=== PATIENT | male | born 1965 | race Caucasian/White ===

== ENCOUNTER 2020-07-06 08:18 | Observation (INO) | payer OTHER, SELFPAY ==
[2020-07-06] VITALS (13 sets, daily range): BP systolic 123–163; BP diastolic 68–103; PULSE 51–84; RESP 16–23; TEMP 36.1–36.9; O2SAT 97–100; BMI 28.8; BMI 28.9
--- NOTE | 2020-07-06 08:32 | EKG12_ITS ---
Test Reason : REPEAT Blood Pressure : / mmHG Vent. Rate : 060 BPM Atrial Rate : 060 BPM P-R Int : 148 ms QRS Dur : 104 ms QT Int : 406 ms P-R-T Axes : 064 -02 039 degrees QTc Int : 406 ms Normal sinus rhythm Normal ECG Confirmed by CYNTHIA FRANKS, PRANAY ([id number]), medical editor BESSIE GIRARD ([id number]) on 07/09/2020 11:20:49 AM Referred By: GEORGE Confirmed By:PRANAY MARIE MD
--- NOTE | 2020-07-06 08:33 | ED.DCSUM_ITS ---
- ER Visit Summary Date of Service: 07/06/20 Chief Complaint: Chest pain History of Present Illness: The patient is a 54 M presenting with chest pain. Patient states this started . He initially had persistent pain in his left chest that radiated to his left side of his back. Initially thought he had a rib out of place. He has had lightheadedness. He denies nausea or vomiting. Denies shortness of breath. Pain is now intermittent. He states he became diaphoretic today. He has a family history of early heart disease. No other CAD risk factors. He denies PE/DVT risk factors. Physical Examination: Vitals are stable. Blood pressure 163/103. Patient is afebrile. Alert no acute distress. HEENT exam is unremarkable. Neck is supple. Lungs are clear and equal bilaterally. Heart is regular rate and rhythm. Abdomen is soft nontender nondistended. Extremities are unremarkable. Skin is warm and dry. No focal neurologic deficit. Remainder of exam is unremarkable. Emergency Department Course and Treatment: Patient was given aspirin. EKG is sinus rhythm rate of 66. Repeat EKG is unchanged. Chest xray shows small left pleural effusion with left basilar atelectasis/infiltrate. CBC, chemistries unremarkable. Troponin is negative. D-dimer 1.10. Due to elevated d-dimer, CTA chest was obtained and shows small left pleural effusion with left basilar infiltrate. Minimal increased markings at the right lung base. Patient was given Levaquin IV. Discussed with hospitalist. Patient will be admitted. COVID test is negative. Disposition: Observation Impression: Chest pain, pneumonia This note was generated with [employer] dictation software. It may contain incorrect words, spelling, and punctuation that were not noted in review of the chart yuni or to signing ED Disposition - Plan for ED Patient:
[2020-07-06] MEDS: Aspirin 81 MG TAB.CHEW 324 MG PO (08:39)
--- NOTE | 2020-07-06 08:42 | EKG12_ITS ---
Test Reason : CP Blood Pressure : / mmHG Vent. Rate : 066 BPM Atrial Rate : 066 BPM P-R Int : 150 ms QRS Dur : 100 ms QT Int : 392 ms P-R-T Axes : 070 -04 040 degrees QTc Int : 410 ms Normal sinus rhythm Normal ECG Confirmed by CYNTHIA FRANKS, PRANAY ([id number]), movie editor BESSIE GIRARD ([id number]) on 07/09/2020 11:20:34 AM Referred By: GEORGE Confirmed By:PRANAY MARIE MD
--- NOTE | 2020-07-06 08:43 | RAD_ITS ---
STUDY: X-RAY CHEST REASON FOR EXAM: Male, 54 years old. INTERMITTENT CHEST PAIN SINCE MONDAY. 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 COMPARISON: None. FINDINGS: EKG electrodes are seen. Small left pleural effusion with left basilar atelectasis/infiltrate. Normal size heart. Normal mediastinum and rafael. Normal visualized pulmonary arteries. Normal visualized aortic arch and descending thoracic aorta. There are degenerative changes of the visualized thoracic spine. Normal visualized ribs, clavicles, and shoulders. There is no demonstrated abnormality of the visualized soft tissue structures of the upper abdomen. RAD/Chest 1 View (Portable) IMPRESSION: Small left pleural effusion with left basilar atelectasis/infiltrate. Electronically Signed: Suraj Real, at 9:01 EDT , Service support ,
[2020-07-06 08:51] LABS: Absolute Lymphocyte Count 1.56 X10^3/uL (0.83-4.51); Basophil# 0.03 X10^3/uL; Basophil% 0.4 % (0-1); Eosinophil# 0.29 X10^3/uL; Eosinophils% 3.8 % (0-5); Hematocrit 50.3 % (40-54); Hemoglobin 16.7 g/dL (13.0-16.5); Lymphocyte # 1.56 X10^3/ul (4.0); Lymphocyte % 20.6 % (19-41); Mean Corp Hgb Conc 33.2 g/dL (32-36); Mean Corpuscular Volume 90.3 fL (80-94); Mean Platelet Vol. 10.8 fl (6.2-12.0); Monocyte# 0.71 X10^3/uL; Monocyte% 9.4 % (0-10); NRBC Flagged by Analyzer 0 % (0-5); Neutrophil # 4.95 X10^3/uL (2.7-7.7); Neutrophil % 65.5 % (47-70); Platelet Count 200 K/mm3 (150-450); RBC Distribution Width CV 12.3 % (11.6-14.6); RBC Distribution Width SD 40.8 fl (35.1-43.9); Red Blood Count 5.57 M/mm3 (4.6-6.2); White Blood Count 7.6 K/mm3 (4.4-11.0)
[2020-07-06 09:10] LABS: Anion Gap 2 (5-15); BUN 12 mg/dL (7-18); BUN/Creat Ratio 12.3 RATIO (10-20); Calcium,Total 9.2 mg/dL (8.5-10.1); Chloride 101 mmol/L (98-107); Creatinine, Serum 0.98 mg/dL (0.70-1.30); EST Glomerular Filtration Rate 85 mL/min (>60); Est Glom Filt Rate - Afr Amer 103 mL/min (>60); Estimated Creatinine Clearance 102.52 ml/min; Glucose 96 mg/dL (74-106); Potassium 4.2 mmol/L (3.5-5.1); Sodium Level 138 mmol/L (136-145)
--- NOTE | 2020-07-06 09:13 | CT_ITS ---
STUDY: CTA CHEST REASON FOR EXAM: Male, 54 years old. Elevated D-dimer, chest pain x 4 days, diaphoretic today. RADIATION DOSAGE (If Supplied By Facility): CTDIvol = ( 13.22 ) mGy, DLP = ( 496.15 ) mGycm TECHNIQUE: The examination was performed with the intravenous administration of IV 100mL Isovue-370. Post-processing of the angiographic images was performed, with multiplanar reformation and 3D reconstruction. Individualized dose optimization techniques were used for this CT. COMPARISON: None. FINDINGS: Small benign-appearing bilateral axillary lymph nodes. Normal enhancement of the main pulmonary artery and right and left pulmonary arteries. Normal enhancement of the bilateral peripheral pulmonary arteries. There is no demonstrated pulmonary embolism. Normal thoracic aorta and visualized great vessels. There is no demonstrated aortic dissection. Normal heart and pericardium. Normal mediastinum. Normal hilar regions. Normal visualized trachea and bronchi. The lungs are well expanded. Small left pleural effusion with left basilar infiltrate. Minimal increased markings at the right lung base. Normal chest wall structures. There are degenerative changes of thoracic spine. Normal visualized upper abdomen. CT/CTA Chest W/WO Contrast IMPRESSION: Small left pleural effusion with left basilar infiltrate. Minimal increased markings at the right lung base. Electronically Signed: Suraj Real, at 9:47 EDT , Service support ,
[2020-07-06] MEDS: levoFLOXacin IV 750 MG/150 ML BAG 100 MG IV (10:55)
--- NOTE | 2020-07-06 12:09 | HP.PCM_ITS ---
Problem List (1) Left pleuritic chest pain Status: Acute (2) Community acquired pneumonia Status: Acute History of Present Illness Date of Admission: 07/06/20 Chief Complaint: Chest pain. The patient is a 54 year old M with no significant past medical history presented to the emergency room because of chest pain. Her symptoms started this past Monday which is 3 days ago with chest pain, left-sided, underneath his left breast, sharp pain, constant, 3-4 out of 10 in severity and sometimes goes up to 10 out of 10 in severity, radiates to the back underneath the left shoulder blade, he has been avoiding taking a deep breath with it and no other associated symptoms. Denied associated shortness of breath, radiation to the neck or left arm. Today morning, he had an episode of sharp pain after he took a deep breath and he became diaphoretic. He denied dizziness or lightheadedness, denied palpitation, syncope or presyncope. He denied fever or chills. He denied cough or sputum production. He denied sick contacts or recent travel. In the emergency department, his blood pressure was slight elevated, other vital signs were stable. Routine blood work was unremarkable. Chest x-ray revealed questionable left basilar infiltrate versus atelectasis. D-dimer was elevated for which CTA chest done and showed no PE or dissection, revealed left basilar infiltrate with left small pleural effusion. COVID-19 PCR is negative. He is being admitted for left basilar community-acquired pneumonia. Past Medical History Past Medical History (Chronic Problems): Chronic Problems Alcohol abuse (Chronic) Allergies No Known Allergies Allergy (Verified 07/06/20 08:18) Home Medications: Ambulatory Orders Medication Instructions Recorded NK 07/06/20 Surgical History: - - Back surgery. Psychiatric History: No pertinent psych hx Lives: Spouse/ Significant Other Smoking Status: Never smoker Alcohol: Heavy Drugs: None - *Family History Maternal History Items: Diabetes, Heart Disease Paternal History Items: No pertinent history Review of Systems Constitutional: Denies: Anorexia, Chills, Fever, Weakness Eyes: Denies: Blurred vision, Double vision, Drainage, Redness HEENT: Denies: Difficulty Hearing, Dysphasia, Ear Pain, Eye Pain, Nasal Congestion, Sore Throat Cardiovascular: Reports: Chest Pain. Denies: Chest Pressure, Chest Tightness, Edema, Heaviness, Light Headedness, Palpitations, Paroxysmal Noc. Dyspnea, Syncope Respiratory: Reports: Pleuritic Pain. Denies: Cough, Hemoptysis, Shortness of Breath, Sputum production, Wheezing Gastrointestinal: Denies: Abdominal Pain, Constipation, Diarrhea, Hematochezia, Nausea, Vomiting Genitourinary: Denies: Dysuria, Frequency, Hematuria Musculoskeletal: Denies: Arm Pain, Back Pain, Foot Pain Skin: Denies: Dryness, Rash Neurological: Denies: Balance problems, Blurred vision, Double vision, Change in Speech, Slurred speech, Confusion, Headaches, Numbness Psychiatric: Denies: Anxiety, Depression Endocrine: Denies: Change in Body Habitus, Polydipsia, Polyuria VTE Information - Inpt Only VTE Present on Admission: No VTE Mechan Device Prophylaxis: None VTE Pharm Prophylaxis ordered?: Yes Patient Problems: Active and Suspected Problems Left pleuritic chest pain (Acute) Community acquired pneumonia (Acute) - Physical Exam Vitals/I&O's: Vital Signs Temp Pulse Resp BP Pulse Ox 96.9 F L 60 19 H 139/96 H 99 07/06/20 08:19 07/06/20 10:58 07/06/20 10:58 07/06/20 10:58 07/06/20 10:58 Oxygen Delivery Method Room Air Weight: 225 lb Body Mass Index (BMI) 28.8 General: Alert, Oriented x3, Cooperative, No apparent distress HEENT: Atraumatic, PERRLA, EOMI, Normocephalic Oral: Moist Mucosa, No Gingival or Mucosal Lesions/ Ulcerations Neck: Supple, No JVD, Negative Carotid Bruits, Trachea Midline, Thyroid Normal Size and Texture Lungs: Clear to auscultation, No rhonchi, No wheeze, No rales, Diminished, - - Decreased breath sounds at the left base, otherwise clear. Cardiovascular: Regular rate, Regular Rhythm, Normal S1, Normal S2, No murmurs, PMI Normal Abdomen: Bowel Sounds Present, Soft, Non Tender, Non-Distended, No Hepato- splenomegaly Extremities: No clubbing, No cyanosis, No edema Skin: No rashes, No breakdown Lymphatic: No Cervical, Supraclavicular, or Inguinal Adenopathy Neurological: Cranial nerves II-XII grossly intact, Motor Exam 5/5 strength throughout Psych/Mental Status: Normal Affect, Appropriate, Alert and oriented to time, place, person, mood and affect Laboratory Results 07/06/20 08:45: WBC 7.6, RBC 5.57, Hgb 16.7 H, Hct 50.3, MCV 90.3, MCH 30.0, MCHC 33.2, RDW Std Deviation 40.8, RDW Coeff of Vijay 12.3, Plt Count 200, MPV 10.8, Immature Gran % (Auto) 0.300, Neut % (Auto) 65.5, Lymph % (Auto) 20.6, [place] % (Auto) 9.4, Eos % (Auto) 3.8, Baso % (Auto) 0.4, Absolute Neuts (auto) 5.0, Absolute Lymphs (auto) 1.56, Nucleated RBC % 0 07/06/20 08:45: D-Dimer Quant (PE/DVT) 1.10 H* 07/06/20 08:45: Sodium 138, Potassium 4.2, Chloride 101, Carbon Dioxide 35.0 H, Anion Gap 2 L, BUN 12, Creatinine 0.98, Estim Creat Clear Calc 102.52, Est GFR (MDRD) Af Amer 103, Est GFR (MDRD) Non-Af 85, BUN/Creatinine Ratio 12.3, Glucose 96, Calcium 9.2, Troponin I < 0.015 07/06/20 10:30: COVID-19 (JIMBO) Pending Clinical Impression(s) from Imaging Studies Chest X-Ray 07/06/20 08:43 IMPRESSION: Small left pleural effusion with left basilar atelectasis/infiltrate. Electronically Signed: Suraj Real, at 9:01 EDT , Service support , Chest CTA 07/06/20 09:13 IMPRESSION: Small left pleural effusion with left basilar infiltrate. Minimal increased markings at the right lung base. Electronically Signed: Suraj Real, at 9:47 EDT , Service support , Assessment/Plan All Active Problems Left pleuritic chest pain (Acute) Community acquired pneumonia (Acute) This is a 54 years old male patient presented to the emergency room because of left-sided pleuritic chest pain and he was found to have left basilar infiltrate with small left pleural effusion consistent with community-acquired pneumonia and he is being admitted for treatment. #1 acute left basilar community-acquired pneumonia: Without evidence of sepsis or severe sepsis. Patient denied cough or sputum production, denied fever or chills. He has no leukocytosis, pulse ox is maintained on room air. COVID-19 PCR is negative. Plan: Admit to [facility] floor, IV fluids, ibuprofen scheduled every 8 hours, Tylenol PRN, Zofran PRN, start IV Levaquin, pneumococcal and Legionella antigen, albuterol PRN, incentive spirometer, repeat CBC and BMP tomorrow morning. #2 left chest pain/elevated d-dimer: This chest pain seemed to be pleuritic, has been going on for 3 days. EKG revealed normal sinus rhythm, no acute segment changes. Troponin is negative. Patient denied family history of premature CAD. He is not a smoker. CTA chest showed no PE or dissection, revealed small left pleural effusion and left basilar infiltrate. Plan: Cardiac monitoring, serial cardiac enzymes, repeat EKG tomorrow morning. At this time, I do not think that we need to do any further cardiac work-up as this patient is matching the site of the left basal infiltrate and it is likely pleuritic pain due to pneumonia. #3 alcohol abuse: Without evidence of acute withdrawal. Patient drinks 3 to 4 days a week out of 7 days. Plan: Folic acid, thiamine, multivitamins. #4 DVT prophylaxis: Subcu Lovenox. This note was generated with [employer] dictation software. It may contain incorrect words, spelling, and punctuation that were not noted in checking the note before signing. Inpatient E&M: 71591 Init Hosp L2
[2020-07-06 14:15] LABS: Cholesterol 154 mg/dL (200); High Density Lipoprotein 52 mg/dL; Triglycerides 65 mg/dL; Very Low Density Lipoprotein 13 mg/dL (5-40)
[2020-07-06] MEDS: Ibuprofen 600 MG Tablet PO ×2 (14:19→21:04)
[2020-07-06] MEDS: 0.9% Normal Saline 1,000 ML 100 ML IV (14:19)
[2020-07-06] MEDS: guaiFENesin 1,200 MG Tablet 1200 MG PO (21:05)
[2020-07-07 03:06] VITALS: PULSE 47
[2020-07-07 04:00] VITALS: BP 108/77; PULSE 59; RESP 17; TEMP 36.6; O2SAT 97
[2020-07-07] MEDS: Ibuprofen 600 MG Tablet PO (04:57)
--- NOTE | 2020-07-07 05:55 | EKG12_ITS ---
Test Reason : AM EKG Blood Pressure : / mmHG Vent. Rate : 047 BPM Atrial Rate : 047 BPM P-R Int : 156 ms QRS Dur : 102 ms QT Int : 466 ms P-R-T Axes : 067 019 037 degrees QTc Int : 412 ms Sinus bradycardia Otherwise normal ECG When compared with ECG of 06-JUL-2020 08:58, MANUAL COMPARISON REQUIRED, DATA IS UNCONFIRMED Confirmed by JULIAN FRANKS, GEOFFREY ([id number]), editor in chief newspaper BESSIE GIRARD ([id number]) on 07/09/2020 11:01:42 AM Referred By: ALVARADO Confirmed By:GEOFFREY JORDAN MD
[2020-07-07 06:30] LABS: Absolute Neutrophil Count 3.4 X10^3/uL (2.0-7.7); Basophil# 0.04 X10^3/uL; Basophil% 0.7 % (0-1); Eosinophil# 0.38 X10^3/uL; Eosinophils% 6.3 % (0-5); Hematocrit 47.1 % (40-54); Hemoglobin 15.5 g/dL (13.0-16.5); Lymphocyte % 26.6 % (19-41); Mean Corp Hgb Conc 32.9 g/dL (32-36); Mean Corpuscular Hgb 29.6 pg (27.0-32.0); Mean Corpuscular Volume 90.1 fL (80-94); Monocyte# 0.55 X10^3/uL; Monocyte% 9.1 % (0-10); NRBC Flagged by Analyzer 0 % (0-5); Neutrophil # 3.44 X10^3/uL (2.7-7.7); Neutrophil % 57.1 % (47-70); Platelet Count 195 K/mm3 (150-450); RBC Distribution Width SD 39.5 fl (35.1-43.9); Red Blood Count 5.23 M/mm3 (4.6-6.2)
[2020-07-07 06:52] LABS: ALB/GLOB Ratio 0.8 RATIO (0.9-2.4); AST(SGOT) 13 U/L (15-37); Alanine Aminotransfer ALT/SGPT 22 U/L (16-61); Alkaline Phosphatase 76 U/L (45-117); Anion Gap 3 (5-15); BUN 15 mg/dL (7-18); BUN/Creat Ratio 16.4 RATIO (10-20); Calcium,Total 8.5 mg/dL (8.5-10.1); Chloride 108 mmol/L (98-107); Creatinine, Serum 0.91 mg/dL (0.70-1.30); EST Glomerular Filtration Rate 92 mL/min (>60); Est Glom Filt Rate - Afr Amer 112 mL/min (>60); Globulin 3.6 g/dL (2.2-4.2); Glucose 89 mg/dL (74-106); Potassium 4.4 mmol/L (3.5-5.1); Protein, Total 6.6 g/dL (6.4-8.2); Sodium Level 140 mmol/L (136-145)
[2020-07-07 07:14] VITALS: PULSE 61
--- NOTE | 2020-07-07 08:08 | DCINST_ITS ---
- Discharge Diagnoses Current Active Problems: Current Active and Chronic Problems Alcohol abuse (Chronic) Left pleuritic chest pain (Acute) Community acquired pneumonia (Acute) You will use the following diet at home:: Regular Your food should be the consistency of: Regular Discharge Activity: Return to Normal Activity Weight Bearing Status: Full weight bearing Call your doctor if you observe: Fever of 101 or Higher, Shortness of breath, Dizziness, Fainting spells, Chest pain, Increased palpitations (irregular heartbeat), Uncontrolled pain Instructions: Pneumonia, Pleurisy Additional Instructions: You can use [id number] ibuprofen 400 mg every 8 hours as needed for pain. Take it with food. Allergies/Adverse Reactions: Allergies No Known Allergies Allergy (Verified 07/06/20 08:18) Medications to take at Discharge levoFLOXacin tablet [Levaquin tablet] 750 mg PO DAILY #6 tab 07/07/20 The following prescriptions were given: levoFLOXacin tablet [Levaquin tablet] 750 mg PO DAILY #6 tab Transmission Status: Pending to [id number] Primary Care Physician: Abel Quinonez MD [Primary Care Provider] - Please follow up with your Primary Care Physician in: 1 week. Test Results: Test results from this visit will be discussed in further detail at your follow- up appointment, if applicable.
--- NOTE | 2020-07-07 09:19 | CASEMGMT ---
ROOPA SCHROEDER assessment: Face to Face with patient for initial transition planning/care coordination assessment. ROOPA SCHROEDER introduced self and role at [facility], pt voices understanding and consents to assessment at this time. Pt is sitting up in bed in no distress at this time. Pt is A/Ox4 at this time and answers all questions appropriately at this time. Care providers, pharmacy, and demographics verified at this time. Presentation: Intermittent CP that radiates to back since , also w/ some diaphoresis Admitting dx: Left basilar CAP, left pleuritic CP PCP: Devi Specialists: Pt states no current specialists. Preferred [facility]acy: [facility] Insurance: MMO Prescription Benefit: MMO Living Will/HPOA: Pt states does not have LW/HPOA and declines AD info at this time. LNOK: Lyric Casillas, sig other Living Arrangements: Pt states lives with sig other in home and states no concerns at home at this time. Pt states is independent with ADL's. Transportation: Pt states drives self and states no transportation concerns at this time. DME/HHC: Pt states no current DME or need for any at this time. Pt states no hx of HHC or SNF in the past. Pt states no concerns with going home at time of discharge. 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 Pt states does not smoke cigarettes but does occasionally drink ETOH. Pt voices no further concerns/needs at this time. CM to follow for any further discharge planning/needs. Advised pt to ask for CM if any further questions/concerns/needs arise, voices understanding. Pt Goal: Home Plan[place] ROOPA SCHROEDER
[2020-07-07 09:32] VITALS: BP 144/86; PULSE 56; RESP 16; TEMP 36.6; O2SAT 96
[2020-07-07] MEDS: Multivitamins,Therapeutic Tablet 1 TABLET PO (09:41)
[2020-07-07] MEDS: Aspirin 81 MG TAB.CHEW PO (09:41)
[2020-07-07] MEDS: Folic Acid 1 MG Tablet PO (09:41)
[2020-07-07] MEDS: levoFLOXacin IV 750 MG/150 ML BAG 100 MG IV (09:42)
[2020-07-07] MEDS: guaiFENesin 1,200 MG Tablet 1200 MG PO (09:42)
[2020-07-07] MEDS: Thiamine Hydrochloride 100 MG Tablet PO (09:42)
[2020-07-07] MEDS: Pantoprazole Sodium 40 MG Tablet PO (09:42)
[2020-07-07] MEDS: 0.9% Saline Lock 10 ML Syringe IV (09:43)
--- NOTE | 2020-07-07 09:53 | PHA.DC.MC ---
Pharmacy Service has performed discharge medication reconciliation and counseling for this patient. The patient was counseled on the following discharge medications and changes in medications for homegoing were reviewed. 1. LEVOFLOXACIN The Reason for Use, instructions for use, and potential side effects were reviewed for all new medications. The patient's questions regarding all of their medications were answered. The patient was able to verbally demonstrate an understanding of their discharge medications. Home Medications levoFLOXacin tablet [Levaquin tablet] 750 mg PO DAILY #6 tab 07/07/20 The patient's discharge medication list was reviewed for discrepancies and discrepancies were resolved.
--- NOTE | 2020-07-07 11:05 | DS.PCM_ITS ---
Discharge Date and Diagnosis - Problem List Patient Problems: Active and Suspected Problems Left pleuritic chest pain (Acute) Community acquired pneumonia (Acute) Date of Admission: 07/06/20 Date of Discharge: 07/07/20 - Primary Discharge Diagnosis Acute Problems: Active Problems #1 left pleuritic chest pain (Acute) #2 left basilar community acquired pneumonia (Acute) - Secondary Discharge Diagnosis Chronic Problems: Chronic Problems Alcohol abuse (Chronic) Hospital Course and Treatment Imaging Results: Clinical Impression(s) from Imaging Studies Chest X-Ray 07/06/20 08:43 IMPRESSION: Small left pleural effusion with left basilar atelectasis/infiltrate. Electronically Signed: Suraj Addie, at 9:01 EDT , Service support , Chest CTA 07/06/20 09:13 IMPRESSION: Small left pleural effusion with left basilar infiltrate. Minimal increased markings at the right lung base. Electronically Signed: Suraj Real, at 9:47 EDT , Service support , Operations: None Procedures: EKG Summary of Care Provided: Patient seen and examined on the day of discharge and appeared to be stable to be discharged home. Left Duncan chest pain has been improving, much improved. Denied shortness of breath. Denied cough or sputum production. Denied fever chills. His vital signs are stable. He has been bradycardic but patient mentioned that his heart rate has been in the high 40s to 50s. He is asymptomatic. The patient is a 54 year old M presented to the emergency room because of chest pain. The pain started 3 days before admission, left-sided chest pain underneath his left breast, sharp pain, radiates to his back underneath the left shoulder blade, aggravated by taking a deep breath. His EKG revealed normal sinus rhythm without evidence of acute ischemic changes. His troponin was negative x3. COVID-19 PCR was done and it was negative. Chest x-ray showed l eft basilar haziness with obliteration of the left costophrenic angle with underlying possible infiltrate or atelectasis. He was found to have elevated d- dimer for which CTA chest done and showed no PE or dissection, revealed left lower lobe basilar infiltrate with small left pleural effusion. Patient is chest pain is attributed to pneumonia and pleurisy. He was treated with IV Levaquin, ibuprofen and Tylenol as well as IV fluids. Repeat EKG revealed sinus bradycardia, no acute segment changes. Troponin was negative x3. Pneumococcal and Legionella antigen were negative. There was no indication for further cardiac work-up. His routine blood work was unremarkable. Patient remained afebrile throughout admission. Patient discharged home in a stable condition, discharged on Levaquin 750 mg p.o. daily to complete total of 7 days of treatment, instructed to take [id number] ibuprofen PRN for pain, recommended follow-up with PCP in 1 week. Patient Problems: Active and Suspected Problems Left pleuritic chest pain (Acute) Community acquired pneumonia (Acute) - Physical Exam Vitals/I&O's: Vital Signs Temp Pulse Resp BP Pulse Ox 97.8 F 56 L 16 144/86 H 96 07/07/20 09:32 07/07/20 09:32 07/07/20 09:32 07/07/20 09:32 07/07/20 09:32 Oxygen Delivery Method Room Air Weight: 225 lb Body Mass Index (BMI) 28.8 Intake and Output for Last 24 Hours 07/05/20 07/06/20 07/07/20 23:59 23:59 23:59 Intake Total 470 / 470 1240 / 1240 Balance 470 / 470 1240 / 1240 General: Alert, Oriented x3, Cooperative, No apparent distress HEENT: Atraumatic, PERRLA, EOMI, Normocephalic Oral: Moist Mucosa, No Gingival or Mucosal Lesions/ Ulcerations Neck: Supple, No JVD, Negative Carotid Bruits, Trachea Midline, Thyroid Normal Size and Texture Lungs: Clear to auscultation, No rhonchi, No wheeze, No rales, Diminished, - - Diminished breath sounds on the left base, otherwise clear. Cardiovascular: Regular rate, Regular Rhythm, Normal S1, Normal S2, PMI Normal Abdomen: Bowel Sounds Present, Soft, Non Tender, Non-Distended Extremities: No clubbing, No cyanosis, No edema Skin: No rashes, No breakdown Lymphatic: No Cervical, Supraclavicular, or Inguinal Adenopathy Neurological: Cranial nerves II-XII grossly intact, Neuro grossly intact Psych/Mental Status: Normal Affect, Appropriate, Alert and oriented to time, place, person, mood and affect Microbiology Past 72 Hours 07/06/20 18:30 Urine, Clean Catch Streptococcus pneumoniae Antigen (M - Final 07/06/20 18:30 Urine, Clean Catch Legionella Antigen - Final Laboratory Results 07/06/20 08:45: Triglycerides 65, Cholesterol 154, LDL Cholesterol 89, VLDL Cholesterol 13, HDL Cholesterol 52 07/06/20 10:30: COVID-19 (JIMBO) Not Detected 07/06/20 14:26: Troponin I < 0.015 07/06/20 17:20: Troponin I < 0.015 07/07/20 06:12: WBC 6.0, RBC 5.23, Hgb 15.5, Hct 47.1, MCV 90.1, MCH 29.6, MCHC 32.9, RDW Std Deviation 39.5, RDW Coeff of Vijay 12.0, Plt Count 195, MPV 11.0, Immature Gran % (Auto) 0.200, Neut % (Auto) 57.1, Lymph % (Auto) 26.6, [place] % (Auto) 9.1, Eos % (Auto) 6.3 H, Baso % (Auto) 0.7, Absolute Neuts (auto) 3.4, Absolute Lymphs (auto) 1.60, Nucleated RBC % 0 07/07/20 06:12: Sodium 140, Potassium 4.4, Chloride 108 H, Carbon Dioxide 29.0, Anion Gap 3 L, BUN 15, Creatinine 0.91, Estim Creat Clear Calc 110.40, Est GFR (MDRD) Af Amer 112, Est GFR (MDRD) Non-Af 92, BUN/Creatinine Ratio 16.4, Glucose 89, Calcium 8.5, Total Bilirubin 0.60, AST 13 L, ALT 22, Alkaline Phosphatase 76, Total Protein 6.6, Albumin 3.0 L, Globulin 3.6, Albumin/Globulin Ratio 0.8 L Current Medications Acetaminophen (Tylenol) 650 mg PO Q6H PRN PRN PRN Reason: Pain Score 1-10/Temp > 100.7 F Albuterol Sulfate (Ventolin Aerosols) 2.5 mg INHALATION Q4H PRN PRN PRN Reason: Shortness of Breath/Wheezing Aspirin (Aspirin, Baby) 81 mg PO DAILY@0800 [facility] Last Admin: 07/07/20 09:41 Dose: 81 mg Documented by: Enoxaparin Sodium (Lovenox) 40 mg SC DAILY [facility] Last Admin: 07/07/20 09:42 Dose: Not Given Documented by: Folic Acid (Folic Acid) 1 mg PO DAILY@0800 [facility] Last Admin: 07/07/20 09:41 Dose: 1 mg Documented by: Guaifenesin (Mucinex) 1,200 mg PO BID [facility] Last Admin: 07/07/20 09:42 Dose: 1,200 mg Documented by: Levofloxacin (Levaquin Iv) 750 mg in 150 mls @ 100 mls/hr IV Q24 [facility] Stop: 07/14/20 10:01 Last Admin: 07/07/20 09:42 Dose: 100 mls/hr Documented by: Ibuprofen (Motrin) 600 mg PO Q8 [facility] Last Admin: 07/07/20 04:57 Dose: 600 mg Documented by: [facility] Admin: 07/07/20 09:41 Dose: 1 tablet Documented by: Ondansetron HCl (Zofran) 4 mg IV Q8H PRN PRN PRN Reason: NAUSEA/VOMITING Oxycodone HCl (Oxyir) 5 mg PO Q4H PRN PRN PRN Reason: Pain Score 4-10/10 Pantoprazole Sodium (Protonix) 40 mg PO DAILY [facility] Last Admin: 07/07/20 09:42 Dose: 40 mg Documented by: Senna/Docusate Sodium (Senokot-S, Emily-Colace) 2 tablet PO BID PRN PRN PRN Reason: Constipation Sodium Chloride () 10 - 40 ml IV UD PRN PRN Reason: SALINE FLUSH Last Admin: 07/07/20 09:43 Dose: 10 ml Documented by: Thiamine HCl ([facility]itamin B1) [facility] Last Admin: 07/07/20 09:42 Dose: 100 mg Documented by: Zolpidem Tartrate (Ambien (Generic)) 5 mg PO QHS PRN PRN PRN Reason: INSOMNIA Discharge Activity: Return to Normal Activity Weight Bearing Status: Full weight bearing Call your doctor if you observe: Fever of 101 or Higher, Shortness of breath, Di zziness, Fainting spells, Chest pain, Increased palpitations (irregular heartbeat), Uncontrolled pain Home Medications: Medications to take at Discharge levoFLOXacin tablet [Levaquin tablet] 750 mg PO DAILY #6 tab 07/07/20 Following Prescriptions Were Given to Patient: levoFLOXacin tablet [Levaquin tablet] 750 mg PO DAILY #6 tab Transmission Status: Received by [facility] Primary Care Physician: Abel Quinonez MD [Primary Care Provider] - Please follow up with your Primary Care Physician in: 1 week. Patient Instructions: Pleurisy, Pneumonia Disposition: Home Minutes spent on discharge:: 28 Patient Condition:: Stable Medical Necessity - Tobacco Use Smoking Status: Never smoker Meaningful Use Info Meaningful Use Diagnoses (Choose all that apply): None applicable OBSV E&M: 08823 Observation care discharge
[2020-07-07 11:35] VITALS: BP 142/88; PULSE 63; RESP 16; TEMP 36.4; O2SAT 97
== END 2020-07-07 08:09 | disposition home or self-care (01) ==
LOC: ED 10:30 → PCU 07-07 07:07
PROVIDERS: Admitting Provider Hospitalist; Emergency Provider Emergency Medicine; Visit Provider Hospitalist
DX: J18.9 Pneumonia, unspecified organism (principal); F10.10 Alcohol abuse, uncomplicated
CPT/HCPCS: 36415; 71045; 71275; 80048; 80053; 80061; 84484; 85025; 85379; 87449; 87635; 93005; 94799; 96361; 96365; 96366; 99218; 99285; J7030; J7050; Q9967; A4216; G0378; U0003

== ENCOUNTER → 2021-08-25 | Outpatient (CLI) | payer OTHER, SELFPAY | END | disposition home or self-care (01) | LOC: LABSPEC 08:20 | PROVIDERS: Referring Provider Physician Assistant; Visit Provider Physician Assistant | DX: Z11.52 Encounter for screening for COVID-19 (principal) | CPT/HCPCS: 87635; U0005; U0003 ==

== ENCOUNTER 2022-06-21 08:36 | Day surgery (SDC) | payer OTHER, SELFPAY ==
[2022-06-21] VITALS (7 sets, daily range): BP systolic 109–141; BP diastolic 77–89; PULSE 43–55; RESP 16; TEMP 36.1–36.9; O2SAT 97–100; BMI 29.2
--- NOTE | 2022-06-21 | IMM_PTH ---
PATIENT: SIRIA GLEZ LOC: EN U#:[id number] AGE/SX: 56/M ROOM: RE06/21/[address]: Dr. Tom Hernandez MD : 1965 BED: DIS: 06/21/2022 SPEC #: [id number] RECD: 06/22/22 06:26 STATUS: MAICOL GIOVANNI #: [id number] BHAVANA: 06/21/22 00:[address]: Tom Hernandez DEPT: IMMUNOHISTOCHEMISTRY RECD BY: Jae Esposito ENTERED: 06/22/22 06:27 SP TYPE: IMMUNO OTHR DR: Dr. Rowena Narayan MD Tissues: Colon, NOS Procedures: H Pylori (initial) PHYSICIAN & INSTITUTION [place] [address] SPECIMEN INFORMATION: Tissue Source: A. Antrum biopsy Clinical Info: GERD, screen for colon cancer Specimen Number: [id number] CPT code: 73109 METHODOLOGY: Deparaffinized sections of prefer/formalin-fixed tissue or PAP/DQ stained slides are incubated with monoclonal/polyclonal antibodies/oligonucleotide probes. Localization is made via biotin free immunoperoxidase method. Appropriate controls are performed and reacted as expected. Results on target cell population are indicated in the following table: RESULTS: ANTIBODY / CLONE RESULT Block A H Pylori (polyclonal) negative These tests were developed and their performance characteristics determined by [facility]. They may not have been cleared or approved by the U.S. Food and Drug Administration. The FDA has determined that such clearance or approval is not necessary. The above immunohistochemical/dualISH markers are ordered and reviewed by the Pathologist. INTERPRETATION: A. Gastric antrum, biopsy: Negative for Helicobacter pylori organisms. AM:khris 06/22/22
[2022-06-21] MEDS: Lactated Ringers 1,000 ML 15 ML IV (09:00)
--- NOTE | 2022-06-21 09:45 | EGD_PTH ---
PATIENT: SIRIA GLEZ LOC: EN U#:[id number] AGE/SX: 56/M ROOM: RE06/21/[address]: Dr. Tom Hernandez MD : 1965 BED: DIS: 06/21/2022 SPEC #: [id number] RECD: 06/21/22 11:29 STATUS: MAICOL GIOVANNI #: [id number] BHAVANA: 06/21/22 09:[address]: Tom Hernandez DEPT: SURGICAL PATHOLOGY RECD BY: Tuyet Kumar ENTERED: 06/21/22 11:45 SP TYPE: EGD BIOPSY OT DR: Dr. Rowena Narayan MD Tissues: A - Gastric mucous membrane B - Stomach, NOS C - Ascending colon Procedures: Surgery Specimen Level IV HEADER OPERATION: Colonoscopy, EGD with biopsy ([facility] PH probe PRE-OP DIAGNOSIS: GERD, screening for colon cancer TISSUE SUBMITTED: A. Antrum biopsy, B. GE junction, C. Ascending colon MICROSCOPIC DIAGNOSIS A. Gastric antrum, biopsy: Mild chronic inflammation. B. Gastro-esophageal junction, biopsy: Fragments of squamous mucosa with ulceration, granulation and acute inflammation. Negative for fungal organisms See Comment. C. Ascending colon. Biopsy: Hyperplastic polyp. AM:am 06/22/2022 COMMENT A. The results of immunohistochemistry for Helicobacter pylori will be reported separately ([id number]). B: GMS stain with matched control supports the above diagnosis. MICROSCOPIC DESCRIPTION Slides are reviewed. GROSS DESCRIPTION A. Received is one container labeled with the patient name and designated antrum. The specimen consists of one irregular fragment of light romero soft tissue that measures 0.5 x 0.4 x 0.1 cm. The specimen is totally submitted in one cassette. B. Received is one container labeled with the patient name and designated GE junction. The specimen consists of multiple irregular fragments of light romero soft tissue that in aggregate measure 1.0 x 0.3 x 0.1 cm. The specimen is totally submitted in one cassette. C. Received is one container labeled with the patient name and designated ascending colon. The specimen consists of one irregular fragment of light romero soft tissue that measures 0.7 x 0.2 x 0.1 cm. The specimen is totally submitted in one cassette. /SJ:khris 06/21/22 TC:3 CPT:75550y3,12600
--- NOTE | 2022-06-21 10:04 | HP.PCM_ITS ---
History and Physical Date of Admission: 06/21/22 Intake Vital Signs ? 06/02/2209:18 Height 6 ft 3 in Weight: 246 lb BMI 30.7 BP 147/88 H Blood Pressure LocationB Rt brachial Position Sitting Respiration 18 Intake Visit Reasons:?GERD/POSSIBLE EGD Chief Complaint: gerd/c-scope Motor Vehicles Inspector Required: No Is patient in pain?: No Allergies No Known Allergies Allergy (Verified 06/02/22 09:19) Medications omeprazole 40 mg capsule,delayed release 40 mg PO DAILY #60 caps 06/02/22 [Rx Confirmed 06/02/22] PFSH Medical History?(Updated 06/02/22 @ 09:[address] Tom Hernandez MD) Dysphagia GERD (gastroesophageal reflux disease) Surgical History?(Updated 06/02/22 @ 09:18 by Thuy Gordon) S/P laminectomy Social History?(Updated 06/02/22 @ 09:18 by Thuy Gordon) Smoking Status:? Never smoker alcohol intake:? current alcohol intake frequency: a few times a month HPI HPI HPI: SIRIA GLEZ, is a 56 M who presents to the office today for EGD and colonoscopy.? The patient says he has been having a lot of reflux and needs to sleep sitting up in his severely affecting his life.? Patient reports that it happens at night and it happens after eating and he is belching a lot that is not controlled.? He is also having some epigastric discomfort especially with coughing. the patient is never had a screening colonoscopy reports no blood in the stool or lower abdominal pain.? He has no family history of colon cancer. ROS General General: No weight change, appetite, fatigue, colon cancer, breast cancer or weakness HEENT HEENT: No difficulty swallowing, eye injury, eye surgery, swollen glands or hoarseness Endo Endocrine: No thyroid disease, diabetes mellitus, thyroid cancer, Hair loss, heat intolerance or cold intolerance Skin Skin: No rash or changing moles Breast Breast: No left breast lump, right breast lump, nipple discharge, breast pain, abnormal mammogram, abnormal US or breast enlargement Musc Musculoskeletal: No back problems, arthritis, rheumatoid arthritis, gout or joint pain Cardio Cardiovascular: No murmur, pacemaker, heart disease, atrial fibrillation, high blood pressure, heart attack, heart stent, palpitations, shortness of breat with exertion or chest pain Psych Psychiatric: No depression, anxiety or hearing voices Resp Respiratory: Yes shortness of breath, No sleep apnea, Yes cough, No COPD, No asthma, No emphysema and No wheezing Gastro Gastrointestinal: No abdominal pain, No nausea or vomiting, No diarrhea, No constipation, No blood in stool, Yes acid reflux, No hemorrhoids, No ulcers, No gallbladder problem and No black,tarry stools Rodney Hematologic: No blood thinners, No blood disorders, No bleeding, No anemia and No blood clots Neuro Neurologic: No system reviewed and no additional complaints, except as documented, No as per HPI, No abnormal gait, No abnormal hearing, No abnormal movements, No abnormal speech, No behavioral changes, No burning sensations, No confusion, No convulsions, No disequilibrium, No dizziness, No localized weakness, No frequent falls, No headache(s), No lack of coordination, No loss of vision, No memory loss, No numbness, No other visual disturbances, No radicular pain, No restless legs, No sensory deficit, No syncope, No tingling, No tremor(s), No weakness and No other Exam Const General: cooperative Orientation: alert and oriented x3 HENMT Head: normal to inspection Neck Neck: normal visual inspection and full ROM Chest Chest palpation & inspection: normal inspection of the chest Resp Effort & Inspection: normal respiratory effort Auscultation: clear to auscultation bilaterally Cardio Rate: regular rate Rhythm: regular rhythm GI Inspection: non-distended Palpation: soft and nontender Skin General: no rashes or lesions noted Neuro General: patient alert and patient oriented x3 Extrem General: full ROM Psych Appearance: grossly normal Mental Status: mental status grossly normal Assessment and Plan Assessment and Plan (1) GERD (gastroesophageal reflux disease): ?Status:?Acute (2) Screen for colon cancer: ?Status:?Acute ? ? ? Orders: Orders Colonoscopy Today ? ? EGD with 48 pH probe Today ? Medications: New omeprazole 40 mg? PO DAILY 60 caps 0RF ? ? Plan The patient is having a lot of reflux and is worried for hiatal hernia.? He is also never had a screening colonoscopy.? I recommend EGD with pH probe and screening colonoscopy.? I will also order him omeprazole to take to see if this helps in the meantime. I explained endoscopy in detail to the patient.? I explained the risks including but not limited to stroke or heart attack with anesthesia, perforation of the GI tract, bleeding, infection.? I explained that any of these could necessitate further emergency surgery.? The patient understands and all questions were answered sufficiently.? The patient wishes to proceed with procedure. Tom Hernandez MD Pager: [facility] [address] [place] [address], [address] [place] [address] Office: I have re-examined the patient. There are no clinical changes since date of exam.
--- NOTE | 2022-06-21 11:07 | OP.EGD_ITS ---
Patient Name: Jaden England Procedure Date: 06/21/2022 10:12 AM Date of : 1965 Age: 56 Procedure: Upper GI endoscopy Indications: Gastro-esophageal reflux disease Providers: Tom Hernandez MD Medicines: Monitored Anesthesia Care Patient Profile: This is a 56 year old male. Refer to note in patient chart for documentation of history and physical. Complications: No immediate complications. Procedure: Pre-Anesthesia Assessment: - Prior to the procedure, a History and Physical was performed, and patient medications and allergies were reviewed. The patient's tolerance of previous anesthesia was also reviewed. The risks and benefits of the procedure and the sedation options and risks were discussed with the patient. All questions were answered, and informed consent was obtained. Prior Anticoagulants: The patient has taken no previous anticoagulant or antiplatelet agents. After reviewing the risks and benefits, the patient was deemed in satisfactory condition to undergo the procedure. After obtaining informed consent, the endoscope was passed under direct vision. Throughout the procedure, the patient's blood pressure, pulse, and oxygen saturations were monitored continuously. The gastroscope was introduced through the mouth, and advanced to the third part of duodenum. The upper GI endoscopy was accomplished without difficulty. The patient tolerated the procedure well. Scope In: 10:30:49 AM Scope Out: 10:37:26 AM Total Procedure Duration Time 0 hours 6 minutes 37 seconds Findings: A small hiatal hernia was present. The examined duodenum was normal. The stomach was normal. Biopsies were taken with a cold forceps in the gastric antrum for Helicobacter pylori testing. The CENTENO capsule with delivery system was introduced through the mouth and advanced into the esophagus, such that the CENTENO pH capsule was positioned 35 cm from the incisors, which was 6 cm proximal to the GE junction. Suction was applied to the well of the CENTENO pH capsule to suck in the adjacent mucosa of the esophagus using the external vacuum pump set at a minimum vacuum pressure of 550 mmHg for 30 seconds. The CENTENO pH capsule was then deployed by depressing the plunger on top of the handle to advance the locking pin into the mucosa, thereby attaching the capsule to the esophagus. The plunger was then rotated a quarter turn clockwise to release the capsule from the delivery system. The delivery system was then withdrawn. Endoscopy was utilized for probe placement and diagnostic evaluation. The esophagus and gastroesophageal junction were examined with white light. There were esophageal mucosal changes suspicious for short-segment Boogie's esophagus. These changes involved the mucosa extending to the Z-line. One tongue of salmon-colored mucosa was present. The maximum longitudinal extent of these esophageal mucosal changes was 2 cm in length. Mucosa was biopsied with a cold forceps for histology in a targeted manner at the gastroesophageal junction. One specimen bottle was sent to pathology. Impression: - Small hiatal hernia. - Normal examined duodenum. - Normal stomach. - Biopsies were taken with a cold forceps for Helicobacter pylori testing. - The CENTENO pH capsule was positioned 35 cm from the incisors, which was 6 cm proximal to the GE junction. Recommendation: - Discharge patient to home. - Resume previous diet. - Continue present medications. - Await pathology results. Procedure Code(s): --- Professional --- 86265, Esophagogastroduodenoscopy, flexible, transoral; with biopsy, single or multiple 92093, Esophagus, gastroesophageal reflux test; with mucosal attached telemetry pH electrode placement, recording, analysis and interpretation Diagnosis Code(s): --- Professional --- K44.9, Diaphragmatic hernia without obstruction or gangrene K21.9, Gastro-esophageal reflux disease without esophagitis CPT copyright 2017 [employer]. All rights reserved. The codes documented in this report are preliminary and upon tie in machine operator review may be revised to meet current compliance requirements. Tom Hernandez MD 06/21/2022 11:06:43 AM This report has been signed electronically. Number of Addenda: 0 Note Initiated On: 06/21/2022 10:12 AM
--- NOTE | 2022-06-21 11:09 | OP.CCLET_ITS ---
06/21/2022 Rowena Narayan MD [address] [place] [address] Re : Upper GI endoscopy procedure for Jaden England Dear Dr. Narayan This procedure was performed on Tuesday, June 21, 2022. My impressions and recommendations are as follows: Impressions : - Small hiatal hernia. - Normal examined duodenum. - Normal stomach. - Biopsies were taken with a cold forceps for Helicobacter pylori testing. - The CENTENO pH capsule was positioned 35 cm from the incisors, which was 6 cm proximal to the GE junction. Recommendations : - Discharge patient to home. - Resume previous diet. - Continue present medications. - Await pathology results. My findings are described in the full procedure note, which is enclosed. If I can be of further assistance, please feel free to contact me at Doctor phone number(s): , Work: . Sincerely, Tom Hernandez MD 06/21/2022 11:06:43 AM This report has been signed electronically.
--- NOTE | 2022-06-21 11:10 | OP.CCLET_ITS ---
06/21/2022 Rowena Narayan MD [address] [place] [address] Re : Colonoscopy procedure for Jaden England Dear Dr. Narayan This procedure was performed on Tuesday, June 21, 2022. My impressions and recommendations are as follows: Impressions : - One small polyp in the ascending colon, removed with a hot snare. Resected and retrieved. - The examination was otherwise normal on direct and retroflexion views. Recommendations : - Discharge patient to home. - Resume previous diet. - Continue present medications. - Await pathology results. - Repeat colonoscopy date to be determined after pending pathology results are reviewed for surveillance based on pathology results. My findings are described in the full procedure note, which is enclosed. If I can be of further assistance, please feel free to contact me at Doctor phone number(s): , Work: . Sincerely, Tom Hernandez MD 06/21/2022 11:09:43 AM This report has been signed electronically.
--- NOTE | 2022-06-21 11:10 | OP.COLON_ITS ---
Patient Name: Jaden England Procedure Date: 06/21/2022 10:39 AM Date of : 1965 Age: 56 Procedure: Colonoscopy Indications: Screening for colorectal malignant neoplasm Providers: Tom Hernadnez MD Medicines: Monitored Anesthesia Care Patient Profile: This is a 56 year old male. Refer to note in patient chart for documentation of history and physical. Last Colonoscopy: none. The patient's first colonoscopy is today. Complications: No immediate complications. Procedure: Pre-Anesthesia Assessment: - Prior to the procedure, a History and Physical was performed, and patient medications and allergies were reviewed. The patient's tolerance of previous anesthesia was also reviewed. The risks and benefits of the procedure and the sedation options and risks were discussed with the patient. All questions were answered, and informed consent was obtained. Prior Anticoagulants: The patient has taken no previous anticoagulant or antiplatelet agents. After reviewing the risks and benefits, the patient was deemed in satisfactory condition to undergo the procedure. After I obtained informed consent, the scope was passed under direct vision. Throughout the procedure, the patient's blood pressure, pulse, and oxygen saturations were monitored continuously. The pediatric colonoscope was introduced through the anus and advanced to the cecum, identified by appendiceal orifice and ileocecal valve. The colonoscopy was performed without difficulty. The patient tolerated the procedure well. The quality of the bowel preparation was good. Scope In: 10:41:17 AM Scope Withdrawal Time 0 hours 6 minutes 57 seconds Scope Out: 10:53:11 AM Total Procedure Duration Time 0 hours 11 minutes 54 seconds Findings: A small polyp was found in the ascending colon. The polyp was removed with a hot snare. Resection and retrieval were complete. The exam was otherwise without abnormality on direct and retroflexion views. Impression: - One small polyp in the ascending colon, removed with a hot snare. Resected and retrieved. - The examination was otherwise normal on direct and retroflexion views. Recommendation: - Discharge patient to home. - Resume previous diet. - Continue present medications. - Await pathology results. - Repeat colonoscopy date to be determined after pending pathology results are reviewed for surveillance based on pathology results. Procedure Code(s): --- Professional --- 58706, 33, Colonoscopy, flexible; with removal of tumor(s), polyp(s), or other lesion(s) by snare technique Diagnosis Code(s): --- Professional --- Z12.11, Encounter for screening for malignant neoplasm of colon D12.2, Benign neoplasm of ascending colon CPT copyright 2017 [employer]. All rights reserved. The codes documented in this report are preliminary and upon repairer helper review may be revised to meet current compliance requirements. Tom Hernandez MD 06/21/2022 11:09:43 AM This report has been signed electronically. Number of Addenda: 0 Note Initiated On: 06/21/2022 10:39 AM
== END 2022-06-21 11:48 | disposition home or self-care (01) ==
LOC: EN 08:42 → AC 08:42
PROVIDERS: PCP Family Medicine; Referring Provider Family Medicine; Visit Provider Surgery
PROC: 0DJD8ZZ Inspection of Lower Intestinal Tract, Via Natural or Artificial Opening Endoscopic (ICD-10-PCS; CPT 45378; principal; 2022-06-21 09:40)
DX: Z12.11 Encounter for screening for malignant neoplasm of colon (principal); K29.50 Unspecified chronic gastritis without bleeding; K63.5 Polyp of colon; K21.9 Gastro-esophageal reflux disease without esophagitis; K44.9 Diaphragmatic hernia without obstruction or gangrene
CPT/HCPCS: 45385; 43239; 91035; 88305; 88342; J7120; J2405

== ENCOUNTER → 2023-05-12 | Outpatient (CLI) | payer OTHER, SELFPAY ==
--- NOTE | 2023-05-12 07:45 | MRI_ITS ---
STUDY: MRI RIGHT REARFOOT WITHOUT CONTRAST REASON FOR EXAM: Male, 57 years old. Right lateral foot pain TECHNIQUE: Standardized fat and water weighted pulse sequences were obtained in all 3 orthogonal planes. COMPARISON: None. FINDINGS: A moderate-sized split tear of the peroneal brevis tendon is present, originating at the musculotendinous junction and continuing along the body of the calcaneus, but rejoining near the calcaneocuboid articulation just proximal to the base of the fifth metatarsal insertion site. The peroneal longus tendon is normal. Mild tenosynovitis is present in the peroneal tendon sheaths. Normal posterior tibialis tendon. Normal flexor digitorum longus tendon. Normal flexor hallucis longus tendon. Normal tibialis anterior tendon. Normal extensor hallucis longus tendon. Normal extensor digitorum longus tendons. Normal Achilles tendon and teno-osseous insertion. A small ankle joint effusion is present. No marrow edema or osteochondral defect or occult fractures visualized. Normal plantar fascia. Normal plantar calcaneal tubercles. Normal intrinsic muscles of the rearfoot. Normal distal tibiofibular syndesmotic ligamentous complex. Normal lateral ligamentous complex. Normal subtalar ligaments and sinus tarsi. Normal deltoid ligamentous complexes. Normal plantar calcaneonavicular (spring) ligament. Normal tibiotalar articulation. Normal talar dome. Normal subtalar articulations. Normal talonavicular articulation. Normal calcaneocuboid articulation. Normal navicular-cuneiform articulations. Normal subcutis adipose space. MRI/Lower Ext Joint Only (Routine) IMPRESSION: 1. A moderate-sized split tear of the peroneal brevis tendon is present, originating at the musculotendinous junction and continuing along the body of the calcaneus, but rejoining near the calcaneocuboid articulation just proximal to the base of the fifth metatarsal insertion site. The peroneal longus tendon is normal. Mild tenosynovitis is present in the peroneal tendon sheaths.Small ankle joint effusion Electronically Signed: Isaias Paniagua MD at 13:45 EDT ,
== END | disposition home or self-care (01) ==
PROVIDERS: Referring Provider Student in an Organized Health Care Education/Training Program; Visit Provider Student in an Organized Health Care Education/Training Program
DX: Q66.89 Other specified congenital deformities of feet (principal)
CPT/HCPCS: 73721

== ENCOUNTER 2023-06-09 11:32 | Day surgery (SDC) | payer OTHER, SELFPAY ==
--- NOTE | 2023-06-05 17:05 | RAD_ITS ---
EXAM: XR CHEST, 2 VIEWS CLINICAL INDICATION: PRE-OP TECHNIQUE: Frontal and lateral views of the chest. COMPARISON: 07/06/2020 FINDINGS: LUNGS AND PLEURAL SPACES: Unremarkable. No consolidation or edema. No pneumothorax. No effusion. HEART: Unremarkable. Cardiac silhouette not enlarged. MEDIASTINUM: Central airways and mediastinal contour are unremarkable. BONES/JOINTS: Unremarkable. SOFT TISSUES: Unremarkable. RAD/Chest PA and Lateral IMPRESSION: No radiographic evidence of acute cardiopulmonary disease. Electronically Signed: Bj Rizvi MD at 17:24 EDT ,
[2023-06-05 17:50] LABS: Basophil# 0.05 X10^3/uL; Basophil% 0.7 % (0-1); Eosinophil# 0.33 X10^3/uL; Eosinophils% 4.4 % (0-5); Hemoglobin 15.5 g/dL (13.0-16.5); Lymphocyte % 33.4 % (19-41); Mean Corpuscular Hgb 29.7 pg (27.0-32.0); Mean Platelet Vol. 11.4 fl (6.2-12.0); Monocyte# 0.59 X10^3/uL; Monocyte% 7.9 % (0-10); NRBC Flagged by Analyzer 0 % (0-5); Neutrophil % 53.3 % (47-70); Platelet Count 177 K/mm3 (150-450); RBC Distribution Width CV 13.2 % (11.6-14.6); RBC Distribution Width SD 42.8 fl (35.1-43.9); Red Blood Count 5.22 M/mm3 (4.6-6.2); White Blood Count 7.5 K/mm3 (4.4-11.0)
[2023-06-05 18:22] LABS: AST(SGOT) 45 U/L (15-37); Alanine Aminotransfer ALT/SGPT 105 U/L (16-61); Albumin, Serum 3.6 g/dL (3.2-5.0); Alkaline Phosphatase 83 U/L (45-117); Anion Gap 6 (5-15); BUN 15 mg/dL (7-18); BUN/Creat Ratio 14.2 RATIO (10-20); Calcium,Total 8.9 mg/dL (8.5-10.1); Chloride 105 mmol/L (98-107); Creatinine, Serum 1.06 mg/dL (0.70-1.30); EST Glomerular Filtration Rate 77 mL/min (>60); Est Glom Filt Rate - Afr Amer 93 mL/min (>60); Globulin 3.5 g/dL (2.2-4.2); Glucose 99 mg/dL (74-106); Potassium 3.8 mmol/L (3.5-5.1); Protein, Total 7.1 g/dL (6.4-8.2); Sodium Level 139 mmol/L (136-145)
[2023-06-09] MEDS: Lactated Ringers 1,000 ML 15 ML IV (12:05)
[2023-06-09 12:06] VITALS: BP 131/90; PULSE 60; RESP 18; TEMP 36.8; O2SAT 98; BMI 30.5
--- NOTE | 2023-06-09 12:16 | PCM.DC ---
Discharge Instructions Diet Discharge Diet: No restrictions Activity Discharge Activity: May Not Drive, May Shower (Please utilize cast bag covering to keep dressings clean, dry, and intact to the right foot. Utilize shower chair to remain nonweightbearing to right foot.) and Use Crutches (Please utilize crutches to remain nonweightbearing to the right lower extremity) Weight Bearing Status: No weight bearing (Please remain nonweightbearing to right lower extremity with assistance of crutches) Keep extremity elevated above heart level: Right Leg (Elevate right lower extremity at all times of rest for postoperative edema control) Dressing / Incision Call your doctor if you observe: Fever of 101 or Higher, Shortness of breath, Chest pain, Calf discomfort and Uncontrolled pain Change Dressing in: do not change dressing Remove Dressing in: leave in place till F/U (Physician will change dressings at first postoperative appointment) Cleanse incision/area with: Do not get Incision Wet and Keep Dressing Clean & Dry (Please keep dressings clean, dry, and intact to the right lower extremity) Follow Up Care Please Follow Up With: Abdullahi Cuenca DPM When: Patient has first postoperative appointment early next week in office Test Results: Test results from this visit will be discussed in further detail at your follow-up appointment, if applicable. Discharge Plan Admission Attending Provider: Abdullahi Cuenca Primary Care Provider: Care Physician,Micheline Primary Consulting Providers: Alida Raymundo Discharge Orders/Prescriptions Prescriptions: New doxycycline hyclate 100 mg capsule 100 mg PO DAILY Qty: 10 0RF aspirin 325 mg tablet 325 mg PO DAILY Qty: 20 0RF oxycodone-acetaminophen 5-325 mg tablet 1 tab PO Q8H PRN (Reason: pain) 7 Days Qty: 28 0RF No Action omeprazole 40 mg capsule,delayed release(DR/EC) 40 mg PO DAILY Qty: 60 0RF Patient Comments: NEVER STARTED Referrals / Follow Up: Care Physician,No Primary [Primary Care Provider] - Disposition Disposition (needs filled in before D/C Order can be placed): Home, Self Care
--- NOTE | 2023-06-09 13:00 | TESH_PTH ---
PATIENT: SIRIA GLEZ LOC: [facility] – [place], [place] U#:[id number] AGE/SX: 57/M ROOM: RE06/09/[address]: Dr. Abdullahi Cuenca DPM : 1965 BED: DIS: 06/09/2023 SPEC #: [id number] RECD: 06/09/23 16:18 STATUS: MAICOL GIOVANNI #: [id number] BHAVANA: 06/09/23 13:[address]: Abdullahi Cuenca DEPT: SURGICAL PATHOLOGY RECD BY: Yadira Montoya ENTERED: 06/12/23 15:36 SP TYPE: TENDON OTHR DR: Dr. Alida Raymundo MD No Primary Care Phys Tissues: A - Tendon and tendon sheath, NOS B - Tendon, NOS Procedures: Surgery Specimen Level III HEADER OPERATION: Repair of peroneal tendon tear of right foot PRE-OP DIAGNOSIS: Split tear of peroneal brevis tendon right foot TISSUE SUBMITTED: A - Peroneal tendon sheath, B - Peroneal tendon MICROSCOPIC DIAGNOSIS A. Peroneal tendon sheath: Fragments of fibroadipose tissue, fibroconnective tissue and synovial tissue with reactive changes. B. Peroneal tendon: Fragments of dense fibroconnective tissue with reactive changes. DHRUV:alvin 06/13/2023 MICROSCOPIC DESCRIPTION Slides are reviewed. GROSS DESCRIPTION A - Received in fixative is one container labeled with the patient's name and designated peroneal tendon sheath. The specimen consists of multiple irregular fragments of romero soft tissue that in aggregate measure 2.0 x 1.5 x 0.3 cm. The specimen is totally submitted in one cassette. B - Received in fixative is one container labeled with the patient's name and designated peroneal tendon. The specimen consists of multiple irregular fragments of romero, indurated tissue that in aggregate measure 2.0 x 2.5 x 0.3 cm. The specimen is totally submitted in one cassette. / DHRUV:alvin 06/12/2023 TC:5 CPT: 41502 x2
[2023-06-09] MEDS: Cefazolin 2 GM in 0.9% Normal Saline 100 ML IV (13:29)
[2023-06-09] MEDS: Bupivacaine Mpf 0.5% 30 ML VIAL (16:14)
[2023-06-09 16:48] VITALS: BP 131/90; BP 156/89; PULSE 83; RESP 16; TEMP 36.1; O2SAT 97
[2023-06-09 17:00] VITALS: BP 131/90; BP 161/98; PULSE 76; RESP 18; O2SAT 100
[2023-06-09 17:15] VITALS: BP 131/90; BP 157/100; PULSE 78; RESP 16; O2SAT 94
[2023-06-09 17:30] VITALS: BP 131/90; BP 144/85; PULSE 68; RESP 12; TEMP 36.8; O2SAT 94
--- NOTE | 2023-06-09 17:31 | RAD_ITS ---
EXAM: XR RIGHT FOOT COMPLETE, 3 OR MORE VIEWS CLINICAL INDICATION: Postoperative repair of peroneal tendon TECHNIQUE: Frontal, lateral and oblique views of the right foot. COMPARISON: Prior MRI May 12, 2023. FINDINGS: BONES/JOINTS: Unremarkable. No acute fracture. No subluxation. Normal alignment. Preservation of the joint space. No sclerotic or destructive changes observed. SOFT TISSUES: Mild soft tissue swelling and trace mottled gas posterior to the ankle joint on the lateral view, presumably postoperative. Mild lateral soft tissue swelling on the frontal view. No underlying bony abnormality. OTHER FINDINGS: 3 views with rigid posterior splint. RAD/Foot min 3 Views IMPRESSION: Splinted views with mild soft tissue swelling and mottling. Electronically Signed: Martha Loyd MD at 9:20 EDT ,
--- NOTE | 2023-06-09 17:35 | OP.PCM_ITS ---
Problems Associated Problem List Diagnoses (1) Peroneal tendon tear: (2) Pain in right foot: (3) Peroneal tendinitis, right leg: Report of Operation Date of Procedure: 06/09/23 Pre-Operative Diagnosis: 1. Split Peroneal brevis Tendon tear Right foot 2. Peroneal Tendonitis/Tenosynovitis Right foot 3. Pain Right foot Post-Operative Diagnosis: 1. Split Peroneal brevis Tendon tear Right foot 2. Peroneal Tendonitis/Tenosynovitis Right foot 3. Pain Right foot Surgery/Procedure Performed:: 1. Repair of peroneal brevis tendon right foot 2. Repair of peroneal longus tendon right foot 3. Debridement of peroneal tendon and tendon sheath right foot Description of Surgical Findings:: See operative note for findings Surgeon: Abdullahi Cuenca caustic loader: Ranjit López DPM PGY-2 Type of Anesthesia: General and Local (10 cc 0.5% Marcaine plain) Specimen's removed: Tenosynovitis peroneal tendon sheath, calcified peroneal tendon Drains: None Estimated Blood Loss (mL): < 5mL Description of Procedure: HPI/indication: Patient is a 57-year-old male who presented to the office end of March 2023 with complaint of right lateral foot pain. He states he rolled the right ankle while working on the job in November 2022 and shook it off as an ankle sprain. He states pain did not improve over the next few months despite epuk-[id number] anti-inflammatories and change in shoe gear. Radiographs were taken and were negative for fracture. On examination did have pain over the ATFL with negative anterior drawer and pain about lateral ankle overlying peroneal tendon and distal fibula. Discussed treatment options with him at that time and he elected for change of shoe gear, orthotic inserts, and oral anti- inflammatory. He return to office with slight to minimal improvement and still did have pain with certain changes of terrain. Discussed obtaining MRI to rule out calcaneonavicular coalition versus tendon tear of peroneal tendon. MRI was performed on 05/12/2023 with impression: A moderate-sized split tear of the peroneal brevis tendon is present, originating at the musculocutaneous junction and continuing along the body of the calcaneus, but rejoining near the calcaneocuboid articulation just proximal to the base of the fifth metatarsal insertion site. Peroneus longus tendon is normal. Mild tenosynovitis is present in the peroneal tendon sheaths. Small ankle joint effusion. Discussed with him at this time repair of the split tear of the peroneus brevis tendon as continued ambulation or following another ankle sprain can further damage tendon or lead to possible complete rupture of tendon. He is in agreement with this today. I reviewed the condition and treatment options with him in detail. He continues to have limiting pain and significant symptoms despite nonsurgical care and repair of the split tendon is deemed necessary. Patient is in agreement and wanted to proceed with surgical intervention. We discussed procedure in great detail. Discussed complications in detail. Advised patient of the risks include but are not limited to the following: Pain, continued pain, complex regional pain syndrome, numbness/neuritis, swelling, scarring, poor cosmetic result, bleeding, hardware failure, symptomatic hardware, need for further surgery/procedures, fracture, nonunion, delayed union, nonhealing/delayed healing, dehiscence, blood clots, allergic reaction, transfer lesions, postoperative arthritis, weakness, shoe gear problems, inability to walk, inability to wear shoes, stroke, heart attack, addiction to pain medication, loss of function, loss of limb, loss of life. Patient voiced understanding of these. Patient was able to repeat these back. The alternative options were discussed and reviewed with him in great detail. Reviewed the risks and benefits of all possible options. Typical postoperative course was reviewed in detail. Patient expressed understanding and agreement. Consent forms were reviewed with the patient and the patient signed them freely. No guarantees were given. No promises were made. He underwent clearance by his PCP on 06/05/2023. Laboratory data was reviewed prior to entering the OR. All diagnostic data was reviewed prior to entering the OR. Operative limb was signed prior to entering the OR. He was scheduled to undergo repair of peroneal brevis tendon and debridement of peroneal tendon and tenosynovitis of the right foot at [facility] on 06/09/2023. Procedure: Patient was brought to the operating room placed on table supine position. Following IV sedation and induction of general anesthesia a pneumatic thigh tourniquet was placed about the patient's right thigh. A blanket bump was placed under the right hip. And the right foot was elevated with a blanket bump. The right foot and leg was scrubbed, prepped, and draped in the usual aseptic manner. An Esmarch bandage was utilized to exsanguinate the right foot and right foot was elevated and the pneumatic thigh tourniquet was inflated to 300 mmHg. Next incision site was marked with a marking pen overlying peroneal tendons course from the musculocutaneous junction to the insertion of the peroneus brevis at the fifth metatarsal base. At this time an incision was made overlying the peroneal tendons along the course of the musculocutaneous junction to the insertion of the peroneus brevis at the fifth metatarsal base utilizing a #15 blade. Incision was deepened via sharp and blunt dissection. Care was taken to identify and retract all vital neurovascular structures. The small saphenous vein was identified and overlying small branches were tied off and cauterized to provide access to the peroneal tendons. The small saphenous vein was then retracted inferiorly and protected throughout the duration of this case. The peroneal tendon sheath was identified and incised utilizing a #15 blade and upon entering tendon sheath inflammatory fluid emerged. The tendon sheath was then tagged with 4-0 Vicryl and the sheath was transected utilizing a #15 blade from the musculocutaneous junction to the distal calcaneocuboid joint articulation and retracted medial laterally. Upon entering the tendon sheath there was noted to be tenosynovitis along the peroneal longus tendon and peroneal brevis tendon sheaths this was debrided utilizing 15 blade, forceps, and hemostats. The peroneal longus tendon was explored and there was noted to be a small superficial tear just inferior to the lateral malleolus extending 1.3 cm distally. The peroneal brevis tendon was also explored and noted to be thickened and discolored compared to the peroneal longus tendon. There were also calcifications noted along the tendon course of the musculocutaneous junction to the lateral malleolus with split tear noted from the musculocutaneous junction along the tendon course to the calcaneocuboid joint articulation distally. Calcifications along the peroneal brevis tendon were debrided utilizing a #15 blade and forceps and sent to pathology for analysis along with debrided tenosynovitis of the peroneal tendons. Underlying tendon was noted to be healthy in appearance and postdebridement no calcific nodules were identified along the tendon course. The sites were flushed with copious amounts of normal sterile saline following debridement of all tenosynovitis. At this time a 3-0 Prolene was utilized to repair the peroneal brevis tendon tear and the tendon was tubularized along the tendon course. Next, 3-0 Prolene was utilized to repair the peroneal longus tendon tear along its course and the tendon was tubularized along the tendon course of the tear. Following repair of the peroneal tendons the site was again flushed with copious amounts of normal sterile saline. The peroneal tendon sheaths were reapproximated utilizing 4-0 Vicryl. At this time 3 cc of Decadron was injected along the tendon sheath course of the peroneal tendons. Next, the deep tissue was closed with 2-0 Vicryl. The subcutaneous layer was closed utilizing 4-0 Monocryl. The skin was reapproximated utilizing 3-0 Prolene in simple interrupted fashion. At this time the pneumatic thigh tourniquet was deflated and a prompt hyperemic response was noted to the digits of the left foot. Next, a postoperative block was performed about the just proximal to incision site at the proximal lower leg/proximal to the ankle joint consisting of 10 cc 0.5% Marcaine plain. The incision site was then dressed with Betadine soaked Adaptic, 4 x 4 gauze, Kerlix, Webril cast padding, 4 inch Franco wrap, and 6 inch Franco wrap. A well molded posterior splint was applied and anchored with a 4 inch Franco and 6 inch Franco wrap in a modified Zayas compression fashion. The patient tolerated the procedure and anesthesia well was transported to PACU vital signs stable vascular status intact to the right foot. Patient is to remain nonweightbearing to the right lower extremity with the assistance of crutches. He was instructed to elevate right foot at all times of rest for postoperative edema control. He was instructed to keep dressings clean, dry, and intact to the right foot and utilize cast bag when showering while seated on shower chair when showering. These were outlined in his discharge instructions He will follow-up in office for first postoperative appointment early next week. Grafts/Implants Used: 3-0 Prolene peroneal brevis and peroneal longus tendon Complications None Admit VTE Documentation VTE Present on Admission: No VTE Mechan Device Prophylaxis: SCD's VTE Pharm Prophylaxis ordered?: Yes
[2023-06-09 17:59] VITALS: BP 131/90
== END 2023-06-09 18:06 | disposition home or self-care (01) ==
LOC: SDC 11:33 → AC 11:35
PROVIDERS: Referring Provider Student in an Organized Health Care Education/Training Program; Visit Provider Student in an Organized Health Care Education/Training Program
PROC: (CPT 28200; principal; 2023-06-09 12:45)
DX: M76.71 Peroneal tendinitis, right leg (principal); G20 Parkinson's disease; S86.311A Strain of muscle(s) and tendon(s) of peroneal muscle group at lower leg level, right leg, initial encounter; X50.1XXA Overexertion from prolonged static or awkward postures, initial encounter; K21.9 Gastro-esophageal reflux disease without esophagitis; F17.220 Nicotine dependence, chewing tobacco, uncomplicated
CPT/HCPCS: 28200 ×2; 01470; 36415; 71046; 73630; 80053; 85025; 88304; J7120; J2405

== ENCOUNTER 2023-06-30 10:51 | Emergency (ER) | payer OTHER, SELFPAY ==
[2023-06-30 10:53] VITALS: BP 156/105; PULSE 63; RESP 14; TEMP 36.1; O2SAT 98; BMI 29.5
--- NOTE | 2023-06-30 11:32 | ED.VIS.LOWEX ---
HPI History of Present Illness Chief Complaint: Lower Extremity Injury Informant: patient Narrative Narrative: Patient had ligament/tendon repair right foot 3 weeks ago, within the past 3 days or so he has been noticing some discomfort in his proximal right calf. No chest pain or shortness of breath or syncope or other systemic symptoms. He has been in an orthotic boot without the ability to bend his ankle. He saw duct layer helper today, so an ultrasound was obtained to evaluate this, and it returned positive for DVT so he was sent here to the emergency department. No history of DVTs, no history of clotting disorders that he knows of. [facility] Medical History Alcohol use Back pain Chewing tobacco nicotine dependence Chronic cough Difficulty swallowing Dysphagia Gastric reflux GERD (gastroesophageal reflux disease) Injury of head and neck Parkinson's disease Home Medications omeprazole 40 mg capsule,delayed release 40 mg PO DAILY #60 caps 06/02/22 [Rx Last Taken 06/09/23] doxycycline hyclate 100 mg capsule 100 mg PO DAILY #10 caps 06/09/23 [Rx Last Taken Unknown] oxycodone-acetaminophen 5 mg-325 mg tablet 1 tab PO Q8H PRN pain 7 days #28 tabs 06/09/23 [Rx Last Taken Unknown] apixaban 5 mg (74 tabs) tablets in a dose pack (Eliquis DVT-PE Treat 30D Start) 5 mg PO BID #74 tabs 06/30/23 [Rx Last Taken Unknown] Allergy/AdvReac Type Severity Reaction Status Date / Time No Known Allergies Allergy Verified 06/30/23 10:51 Surgical History Hx of colonoscopy S/P laminectomy Social History Smoking Status: Current some day smoker tobacco type: smokeless tobacco alcohol intake: current alcohol intake frequency: a few times a month ROS ROS ED Constitutional Constitutional ED: Denies chills or fever(s) Musculoskeletal Musculoskeletal: Reports extremity pain; Denies neck pain Integumentary Denies Abrasions, rash or wounds Neurologic Neurologic: Denies paresthesias or weakness EXAM Physical Exam Const Vital Signs: 06/30/23 10:53 Temperature 97 F L Temperature Source Temporal Pulse Rate 63 Respiratory Rate 14 Blood Pressure 156/105 H Blood Pressure Mean 122 Pulse Ox 98 Oxygen Delivery Method Room Air Positive well nourished and well developed General Appearance ED: well developed and NAD Neck full ROM and supple Back/Spine normal ROM and normal to inspection Extremity normal to inspection Extremity Narrative: Mild tenderness in the posterior right lower leg, proximal calf including the popliteal fossa no palpable cords, no gross edema. Exam limited patient is in a boot. We left that intact. Neurovascular intact distally in the toes. Neuro oriented x3, no focal motor deficits and no sensory deficits noted Sensorium / Orientation: alert Psych mental status grossly normal and thought process normal Skin no wounds Rashes: no rashes MDM MDM MDM Narrative Medical decision making narrative: I reviewed the patient's outpatient duplex Doppler study. It shows SSV thrombus that extends into the deep system and then includes the distal femoral vein, proximal popliteal vein with a possible mobile thrombus within the vessel. Nothing more distal or more proximal to these areas. Patient presenting around noon. We will give him Lovenox to give him 24 hours worth of coverage, 1.5 mg/kg at 150 mg, (his weight is 104, this comes out to be 156 mg but he was weighed with his boot on). We will send him a prescription for Eliquis to start in the morning he is comfortable with that plan. Discharge Plan Triage Chief Complaint: Lower Extremity Injury ED Provider: Mani Jorge Dx/Rx/DC Orders Clinical Impression: Deep vein thrombosis (DVT) of right lower extremity Instructions: DVT Dc Prescriptions: New Eliquis DVT-PE Treat 30D Start 5 mg (74 tabs) tablets,dose pack 5 mg PO BID Qty: 74 0RF Rx Instructions: use as directed Discontinued aspirin 325 mg tablet 325 mg PO DAILY Qty: 20 0RF No Action omeprazole 40 mg capsule,delayed release(DR/EC) 40 mg PO DAILY Qty: 60 0RF Patient Comments: NEVER STARTED doxycycline hyclate 100 mg capsule 100 mg PO DAILY Qty: 10 0RF oxycodone-acetaminophen 5-325 mg tablet 1 tab PO Q8H PRN (Reason: pain) 7 Days Qty: 28 0RF Primary Care Provider: Care Physician,No Primary Referrals: Morteza Narayan MD [Non-Staff] - (follow up with new PCP in office within the next month) Disposition Disposition: Home, Self Care
[2023-06-30] MEDS: Enoxaparin 150 MG/ML Syringe SC (11:53)
== END 2023-06-30 11:54 | disposition home or self-care (01) ==
LOC: ED 11:49
PROVIDERS: Emergency Provider Emergency Medicine; Visit Provider Emergency Medicine
DX: I82.411 Acute embolism and thrombosis of right femoral vein (principal); G20 Parkinson's disease; I82.431 Acute embolism and thrombosis of right popliteal vein; F17.220 Nicotine dependence, chewing tobacco, uncomplicated
CPT/HCPCS: 96372; 99282

== ENCOUNTER → 2023-06-30 | Outpatient (CLI) | payer OTHER, SELFPAY ==
--- NOTE | 2023-06-30 09:50 | VDLE_ITS ---
Reason For Study: RLE Pain RIGHT LEFT GSV is normal. CFV is compressible, spontaneous, phasic, CFV is compressible, spontaneous, phasic, competent, and demonstrates normal competent and demonstrates normal augmentation. augmentation. Prox FV is compressible, spontaneous and phasic. SSV is DILATED and NONCOMPRESSIBLE throughout. Thrombus is seen throughout vessel and appears to extend into the deep system. Dist FV / Prox POP V is DILATED and NONCOMPRESSIBLE. Possible mobile thrombus visualized within the vessel. Dist POP V is compressible, spontaneous and phasic. T/P Trunk is compressible. PTV is compressible. RT PerV is compressible. Procedure This is a venous duplex using B-mode, color flow and spectral Doppler. Exam performed in department. The exam was diagnostic. A preliminary report was called and/or faxed to Brady Castaneda RN at Dr. Cuenca's office. Pt was taken to [facility] ED. VL/Venous Duplex US, Unilateral Interpretation Summary Acute deep venous thrombosis right proximal femoral vein with visible mobile th rombus. Acute deep venous thrombosis right popliteal vein Patent and compressible right great saphenous vein Normal flow patterns left common femoral vein Ordering Physician: Abdullahi Cuenca Referring Physician: N/A Performed By: Joe Persaud RVT
== END | disposition home or self-care (01) ==
PROVIDERS: Referring Provider Student in an Organized Health Care Education/Training Program; Visit Provider Student in an Organized Health Care Education/Training Program
DX: M79.661 Pain in right lower leg (principal)
CPT/HCPCS: 93971

== ENCOUNTER 2023-08-02 09:30 | Outpatient (RCR) | payer OTHER, SELFPAY ==
--- NOTE | 2023-07-25 09:23 | HP.PTEVAL_ITS ---
Patient's Visit Information Visit Information Visit Information: SIRIA GLEZ is a 57 year old M referred to Physical Therapy by Dr. Abdullahi Cuenca DPM with a diagnosis of R peroneal brevis tendon repair 06/09/23. Date of Evaluation: 07/25/23 Physical Therapist: MAURICE Petersen Visit Plan Frequency: 3x /Week Duration: 2 Months Plan: 3X/ week for 8 weeks for R ankle strength, ROM, SLB and proprioception, gait training, stair negotiation with HEP (US is also on the order if needed) Subjective Subjective: Pt had debridement and repair of R peroneal brevis tendon on 06/09/23. He went las Monday and he took him out of the boot since Monday. He hurt himself last time this year but it never healed so he limped for 10 months. He has to tell himself to walk normal. He can if he thinks about it. He can not walk on uneven surfaces. Stairs: He goes up the stairs he goes recip but he goes step two descending the stairs. He feels that his R calf is atrophied and when he started walking on Sat he started to get calf pain. He had blood clots in his calf about 3 weeks post op. RTD next Monday. His ankle is popping and when it releases he is able to go and walk. The first few steps it feels hung up and then when it pops he can walk. This started a few months before surgery and still there. RTW Aug 07... can not walk on rough terrain. Pain R ankle pain: Pain Intensity (Out of 10): 0 Objective Objective: Gait: Walks with decrease stance time on the R but overall good mechanics LE MMT (ankle): DF R 9.7, EV 10.3 DF L 12.8, EV, 13.1 R ankle AROM -4, PF 47, INV 20, EV5 L ankle AORM 2, 53, 20, 11 Girth Measurements: R girth measurements Lat to med mal 27.4, Fig 8 55, met heads 24.1 L 26, 52.3, 24 standing heel and toe raises: able to do X 5 B with UE support but decrease ROM and feels stiff Stairs: up and down recip with hand rail... increased weakness noted ascending the steps and decreased Push off and decreased DF descending the steps SLB R 1 seconds and R 25 seconds Balance/Special Test Scores Lower Extremity Functional Score: 51 Goals Goal 1:: I HEP Goal Time Frame: 4-6 Weeks Goal 2:: Increase R ankle AROM (at time of the eval: R ankle AROM -4, PF 47, INV 20, EV5 L ankle AORM 2, 53, 20, 11) Goal Time Frame: 4-6 Weeks Goal 3:: Be able to SLB on the R for 30 seconds with no signs of instability Goal Time Frame: 4-6 Weeks Goal 4:: Be able to get up and walk without getting the popping before he feels that he can walk. Goal Time Frame: 4-6 Weeks Goal 5:: Increase R ankle strength (at time of the eval: LE MMT (ankle): DF R 9.7, EV 10.3 DF L 12.8, EV, 13.1) Goal Time Frame: 4-6 Weeks Rehabilitation Potential Rehabilitation Potential: Good Anticipated Interventions Patient/Client Instruction: Educate patient on: Condition and Plan of Care For the Purpose of:: To decrease pain, To increase ROM, To improve nutrient delivery to tissue, To improve muscle performance and motor function, To improve ability to perform ADL's, To increase tolerance to activity/condition/position, To improve performance and independence with ADL's, To decrease level of supervision to perform tasks, To improve ability of physical actions for home/community/work/leisure, To improve gait and locomotor functions, To improve health of tissue, To decrease soft tissue restriction, To increase flexibility/ROM, To improve balance and To improve safety with gait Therapeutic Exercise to Include: Strength training, Flexibilty training, Gait and locomotor training, Passive ROM and Active ROM For the Purpose of:: To decrease pain, To decrease swelling/inflammation, To increase ROM, To improve nutrient delivery to tissue, To improve muscle performance and motor function, To improve ability to perform ADL's, To increase tolerance to activity/condition/position, To improve performance and independence with ADL's, To decrease level of supervision to perform tasks, To improve health of tissue, To decrease soft tissue restriction and To increase flexibility/ROM Functional Training to Include: Gait training For the Purpose of:: To improve gait and locomotor functions Manual Therapy Techniques to Include: Passive ROM For the Purpose of:: To increase ROM Ultrasound (thermal/non thermal): Yes For the Purpose of:: To decrease pain, To decrease swelling/inflammation and To improve nutrient delivery to tissue Text: Thank you for the opportunity to evaluate your patient. For Medicare and Medicare HMO plans, please review the plan of care and approve it. It will need to be FAXED BACK to us at [phone] for Medicare purposes. For Medicare only, by signing this I certify the plan of care. Please let me know if there are questions or concerns regarding this plan of care. Physician Sign ature: Date:
--- NOTE | 2023-11-13 09:47 | HP.PT.NRP(2) ---
Patient Information Patient Information: SIRIA GLEZ was seen in my office for initial evaluation on . The following Plan of Care was established for this patient: Last Seen Last Seen: This patient was last seen in our office . Pertinent comments regarding their Physical therapy will appear below: At this point I will be discontinuing this patient from physical therapy. I would be happy to see this patient again in the future if found appropriate by the physician. Thank you! Sahri Velazco, MPT
== END 2023-08-02 19:00 | disposition home or self-care (01) ==
LOC: PT 09:30
PROVIDERS: PCP Nurse Practitioner Family; Referring Provider Student in an Organized Health Care Education/Training Program; Visit Provider Student in an Organized Health Care Education/Training Program
DX: S86.391D Other injury of muscle(s) and tendon(s) of peroneal muscle group at lower leg level, right leg, subsequent encounter (principal)
CPT/HCPCS: 97110; 97161

== ENCOUNTER 2024-02-09 11:17 | Day surgery (SDC) | payer OTHER, SELFPAY ==
--- NOTE | 2024-01-24 16:30 | RAD_ITS ---
EXAM: XR CHEST, 2 VIEWS CLINICAL INDICATION: PRE-OP TECHNIQUE: Frontal and lateral views of the chest. COMPARISON: 06/05/2023. FINDINGS: LUNGS AND PLEURAL SPACES: Unremarkable. No consolidation or edema. No pneumothorax. No effusion. HEART: Unremarkable. Cardiac silhouette not enlarged. MEDIASTINUM: Central airways and mediastinal contour are unremarkable. BONES/JOINTS: Unremarkable. No acute fracture. SOFT TISSUES: Unremarkable. RAD/Chest PA and Lateral IMPRESSION: No acute cardiopulmonary abnormality. Electronically Signed: Abdullahi Rivas MD at 2:54 EDT ,
[2024-01-24 17:42] LABS: Absolute Lymphocyte Count 2.34 X10^3/uL (0.83-4.51); Absolute Neutrophil Count 4.4 X10^3/uL (2.0-7.7); Basophil# 0.04 X10^3/uL; Basophil% 0.5 % (0-1); Eosinophil# 0.15 X10^3/uL; Lymphocyte # 2.34 X10^3/ul (0.83-4.51); Lymphocyte % 31.4 % (19-41); Mean Corp Hgb Conc 33.6 g/dL (32-36); Mean Corpuscular Volume 89.3 fL (80-94); Mean Platelet Vol. 11.3 fl (6.2-12.0); Monocyte# 0.49 X10^3/uL; Monocyte% 6.6 % (0-10); NRBC Flagged by Analyzer 0 % (0-5); Neutrophil # 4.41 X10^3/uL (2.7-7.7); Neutrophil % 59.2 % (47-70); Platelet Count 224 K/mm3 (150-450); RBC Distribution Width CV 12.2 % (11.6-14.6); Red Blood Count 6.34 M/mm3 (4.6-6.2); White Blood Count 7.5 K/mm3 (4.4-11.0)
[2024-01-24 17:53] LABS: ALB/GLOB Ratio 1.1 RATIO (0.9-2.4); AST(SGOT) 33 U/L (15-37); Alanine Aminotransfer ALT/SGPT 73 U/L (16-61); Albumin, Serum 3.7 g/dL (3.2-5.0); Alkaline Phosphatase 66 U/L (45-117); Anion Gap 7 (5-15); BUN 13 mg/dL (7-18); BUN/Creat Ratio 13.6 RATIO (10-20); Calcium,Total 9.4 mg/dL (8.5-10.1); Chloride 102 mmol/L (98-107); Creatinine, Serum 0.95 mg/dL (0.70-1.30); EST Glomerular Filtration Rate 87 mL/min (>60); Est Glom Filt Rate - Afr Amer 105 mL/min (>60); Globulin 3.4 g/dL (2.2-4.2); Glucose 95 mg/dL (74-106); Potassium 4.2 mmol/L (3.5-5.1); Protein, Total 7.1 g/dL (6.4-8.2); Sodium Level 139 mmol/L (136-145)
[2024-01-24 18:15] LABS: Hematocrit 56.6 % (40-54)
[2024-01-26 09:29] LABS: Pathologist Review Reviewed
[2024-02-09] VITALS (7 sets, daily range): BP systolic 123–151; BP diastolic 81–97; PULSE 66–87; RESP 16–18; TEMP 36.3–36.7; O2SAT 95–99; BMI 29.7
--- NOTE | 2024-02-09 11:27 | EKG12_ITS ---
Test Reason : PRE OP Blood Pressure : / mmHG Vent. Rate : 059 BPM Atrial Rate : 059 BPM P-R Int : 158 ms QRS Dur : 096 ms QT Int : 420 ms P-R-T Axes : 073 -27 043 degrees QTc Int : 415 ms Sinus bradycardia Otherwise normal ECG Confirmed by Abdullahi Somers ([id number]), editorial specialist KEYONA RAMOS ([id number]) on 02/12/2024 1:27:42 PM Referred By: Abdullahi Cuenca Confirmed By:Abdullahi Somers
[2024-02-09] MEDS: Lactated Ringers 1,000 ML 15 ML IV (11:30)
[2024-02-09 11:48] LABS: Hematocrit 53.7 % (40-54)
[2024-02-09 11:52] LABS: Hemoglobin 18.4 g/dL (13.0-16.5)
--- NOTE | 2024-02-09 12:22 | DCINST_ITS ---
Discharge Instructions Diet Discharge Diet: No restrictions Activity Discharge Activity: May Not Drive and May Shower (Please use cast bag covering when showering to keep dressings clean, dry, and intact to the right lower extremity) Weight Bearing Status: No weight bearing (Please remain nonweightbearing to the right lower extremity with the assistance of crutches/knee scooter) Keep extremity elevated above heart level: Right Leg (Elevate right lower extremity at all times of rest for postoperative edema control) Dressing / Incision Call your doctor if you observe: Fever of 101 or Higher, Shortness of breath, Chest pain, Calf discomfort and Uncontrolled pain Change Dressing in: do not change dressing Remove Dressing in: leave in place till F/U (Do not change dressing. Keep dressing clean, dry, and intact to the right lower extremity. Physician will change dressing at first postoperative appointment) Cleanse incision/area with: Do not get Incision Wet and Keep Dressing Clean & Dry (Do not get wet. Please keep dressing clean, dry, and intact to the right lower extremity) Follow Up Care Please Follow Up With: Abdullahi Cuenca DPM When: Patient has first postoperative appointment with me early next week. Test Results: Test results from this visit will be discussed in further detail at your follow- up appointment, if applicable. Discharge Plan Admission Attending Provider: Abdullahi Cuenca Primary Care Provider: Ale Parra Consulting Providers: Alida Raymundo Discharge Orders/Prescriptions Prescriptions: New doxycycline hyclate 100 mg capsule 100 mg PO DAILY Qty: 10 0RF aspirin 325 mg tablet 325 mg PO DAILY Qty: 20 0RF oxycodone-acetaminophen 5-325 mg tablet 1 tab PO Q6H PRN (Reason: pain) 7 Days Qty: 30 0RF No Action omeprazole 40 mg capsule,delayed release(DR/EC) 40 mg PO DAILY Qty: 60 0RF semaglutide (weight loss) 0.25 mg/0.5 mL pen injector 0.75 mg subcut QWEEK Hold Instructions: ON HOLD FOR 15 DAYS FOR PROCEDURE Referrals / Follow Up: Ale Parra, CHAPIS-C [Primary Care Provider] - Disposition Disposition (needs filled in before D/C Order can be placed): Home, Self Care
[2024-02-09] MEDS: Cefazolin 2 GM in 0.9% Normal Saline (100mL Bag) 100 ML IV (13:05)
--- NOTE | 2024-02-09 13:30 | RAD_ITS ---
PROCEDURE: Calcaneal osteotomy with repair of anterior talofibular ligament. DATE OF EXAMINATION: February 09, 2024. INDICATION: Male, 58 years old. Hindfoot pain. FLUOROSCOPY TIME (if supplied): (6 minutes) minutes/seconds. 9.18 mGy. 11 images were submitted. RAD/Calcaneus min 2 Views IMPRESSION: Intraoperative fluoroscopic imaging provided for calcaneal osteotomy and anterior talofibular ligament repair. Electronically Signed: Suraj Real MD at 9:24 EDT ,
[2024-02-09] MEDS: Lidocaine 1% (20 ml mdv) 20 ML Vial (13:40)
[2024-02-09] MEDS: Bupivacaine Mpf 0.5% 30 ML VIAL (13:40)
--- NOTE | 2024-02-09 16:25 | RAD_ITS ---
STUDY: X-RAY - RIGHT FOOT CLINICAL: Male, 58 years old. Post-op Cavus foot (PACU) - calcaneal osteotomy TECHNIQUE: 3 view(s) of the foot. COMPARISON: None. FINDINGS: The patient is status post calcaneal osteotomy with 2 metallic screw fixation device. RAD/Foot min 3 Views IMPRESSION: Status post calcaneal osteotomy with screw fixation. Electronically Signed: Suraj Real MD at 9:42 EDT ,
--- NOTE | 2024-02-09 17:30 | OP.PCM_ITS ---
Problems Associated Problem List Diagnoses (1) Cavus deformity of right foot: (2) Tear of talofibular ligament of right lower extremity: (3) Pain in right foot: Report of Operation Date of Procedure: 02/09/24 Pre-Operative Diagnosis: 1. Cavus Foot Deformity Right foot 2. Partial Tear of Anterior Talofibular Ligament Right foot 3. Pain Right foot Post-Operative Diagnosis: 1. Cavus Foot Deformity Right foot 2. Partial Tear of Anterior Talofibular Ligament Right foot 3. Pain Right foot Surgery/Procedure Performed:: 1. Calcaneal Osteotomy Right foot 2. Repair of Anterior Talofibular Ligament with Internal Brace Right foot 3. Application of AO splint Right lower extremity Description of Surgical Findings:: See operative note for findings Surgeon: Abdullahi Cuenca soaping department supervisor: Jordon Morse DPM PGY-2 Type of Anesthesia: General and Local (10 cc one-to-one mixture 1% lidocaine plain and 0.5% Marcaine plain; Popliteal Block Post-operatively) Specimen's removed: None Drains: None Estimated Blood Loss (mL): < 4mL Description of Procedure: HPI/indication: Patient is a 58-year-old male who in early November 2022 rolled right ankle while at work coming down the hill. He presented to office in March with complaint of lateral ankle pain and underwent MRI demonstrating peroneal tendon tear. He did undergo surgical intervention on 06/09/2023 for repair of the peroneal tendons. 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 Cites difficulty with uneven surfaces. Upon further examination he does have a slight cavovarus foot deformity without improvement with Hernandez block testing. He was sent for second MRI to reevaluate for possible tendon tear following reinjury and it was noted the peroneal tendon was intact and healing well. They do note attenuation of the anterior talofibular ligament with partial tearing noted. Discussed correction of his cavovarus foot deformity and repair of the a nterior talofibular ligament. Patient is in agreement with this correction. Patient continues to have limiting symptoms despite conservative treatment with orthotic with lateral flare to promote pronation. He states that while uneven surfaces have improved he still does feel that the foot wants to roll to the outside and thus would like to undergo surgical correction via calcaneal osteotomy. Surgical procedure was discussed in great detail. Risks and complications of the procedure were discussed in detail. Discussed with patient the risks include but are not limited to the following: Pain, continued pain, complex regional pain syndrome, numbness/neuritis, swelling, scarring, poor cosmetic result, bleeding, hardware failure, symptomatic hardware, need for further surgery/procedures, fracture, nonunion, delayed union, nonhealing/delayed healing, dehiscence, blood clots, allergic reaction, transfer lesions, postoperative arthritis, weakness, shoe gear problems, inability to walk, inability to wear shoes, stroke, heart attack, addiction to pain medication, loss of function, loss of limb, loss of life. Patient voiced understanding of these. Patient was able to repeat these back. The alternative options were discussed in detail and patient wishes to proceed forward with the surgical plan. Typical postoperative course was reviewed in detail. Consent forms were reviewed with the patient and the patient signed them freely. No guarantees were given. No promises were made. He underwent clearance by his PCP prior to surgical intervention. Laboratory data and all diagnostic data was reviewed prior to entering the OR.. He was scheduled to undergo calcaneal osteotomy and repair of the anterior talofibular ligament with internal brace system at [facility] on 02/09/2024. Procedure: Under mild sedation patient was brought into the operating room and placed on the table in the supine position. Patient was secured to table with safety belt. A blanket bump was placed under the right hip and the right foot elevated via a blanket bump. Following IV sedation and induction of general anesthetic a pneumatic thigh tourniquet was placed about the patient's right thigh. The right foot and leg were then scrubbed, prepped, and draped in the usual aseptic manner. Next, utilizing fluoroscopy all landmarks were mapped out with a marking pen with incision placement planning also marked by marking pen. A local anesthetic block was then performed about the ankle consisting of 10 cc one-to-one mixture 1% lidocaine plain and 0.5% Marcaine plain. An Esmarch bandage was utilized to exsanguinate the right foot and the right lower extremity was elevated and the pneumatic thigh tourniquet was inflated to 300 mmHg. At this time attention was directed to the right leg where a curvilinear incision was made overlying the right calcaneus between the Achilles tendon and the peroneal tendons utilizing a #15 blade. Incision was deepened through sharp and blunt dissection. Care was taken to identify and retract vital neurovascular structures and these were protected throughout the duration of this case. Next, calcaneus was identified and placement of the osteotomy was confirmed in multiple fluoroscopic views. A sagittal saw was then utilized to perform the calcaneal osteotomy and the osteotomy cut was finished via osteotome and mallet. Next, the calcaneus was shifted laterally promoting pronation effect on his varus heel. Osteotomy was temporarily pinned into place via 2 parallel K wires on the lateral view. Temporary fixation was observed in multiple fluoroscopic views with noted hindfoot alignment and more rectus foot on calcaneal axial view with foot loaded to simulate weightbearing. Stab incision over K wire was performed utilizing #15 blade to allow for insertion of the fully threaded compression screw. Next, following AO principles two 5.0 x 60 mm fully threaded compression screws were placed across the osteotomy site and position was confirmed in multiple fluoroscopic views. Next, K wires were then removed and again site was examined in multiple fluoroscopic views with noted hindfoot alignment. At this time attention was then directed to the anterior lateral ankle overlying the distal fibula and anterior talofibular ligament where a curvilinear incision was made overlying this ligament utilizing a #15 blade. Incision was deepened through sharp and blunt dissection. Care was taken to identify and retract all vital neurovascular structures and protected these throughout the duration of this case. The partial tear of the anterior talofibular ligament was then identified from the base of the fibula and repaired via the knotless fiber tack anchors inserted into the distal fibula with foot in dorsiflexed everted position. Next, following [employer] manufacture guideline the Internal Brace system was placed with 1 x 4.75 mm swivel lock into the talus and 1 x 3.5 mm swivel lock into the distal end of the fibula with fiber tape properly secured/tensioned. Following insertion of the internal brace system the ankle was noted to have increased stability with negative anterior drawer negative talar tilt testing. All sites were then flushed with copious amounts of normal sterile saline. Stab incisions in the posterior heel were then reapproximated with 3-0 Prolene in simple interrupted fashion. Deep tissues at the lateral calcaneus and anterior lateral ankle were closed utilizing 0 Vicryl. At this time the pneumatic thigh tourniquet was deflated prompt hyperemic response was noted to the digits of the foot. The subcuticular tissue at the lateral calcaneus and anterior lateral ankle were then repaired utilizing 4-0 Monocryl. Skin was then reapproximated at the lateral calcaneus and anterior lateral ankle utilizing 3-0 Prolene in simple interrupted fashion. Incision sites were then dressed with Betadine soaked Adaptic, 4 x 4 gauze, Kerlix, ABD, Webril cast padding, 4 inch Franco wrap, 6 inch Franco wrap. A well molded AO splint was then applied to the right lower extremity and anchored with a 4 inch Franco wrap and 6 inch Franco wrap and modified Zayas compression fashion. Patient tolerated the procedure and anesthesia well was transported to PACU with vital signs stable vascular status intact to the right foot. Postoperative imaging was then obtained and reviewed prior to leaving. While in PACU patient did receive popliteal block for postoperative pain management by anesthesia team. Patient and given instructions for postoperative care. Patient is to continue to keep dressings clean, dry, and intact to the right lower extremity and utilize cast bag when showering. He is to remain nonweightbearing to the right lower extremity with the assistance of a knee scooter or crutches. He is to continue to elevate right lower extremity at all times of rest for postoperative edema control. He also will be taking Eliquis postoperatively given his history of DVTs. Patient will follow in office with me early next week for first postoperative appointment. Grafts/Implants Used: Two 5.0 x 60mm FT compression screws; ATFL Internal brace system Complications None Admit VTE Documentation VTE Present on Admission: No VTE Mechan Device Prophylaxis: SCD's VTE Pharm Prophylaxis ordered?: Yes
[2024-02-13 08:50] LABS: Pathologist Review Reviewed
== END 2024-02-09 18:00 | disposition home or self-care (01) ==
LOC: SDC 11:17 → AC 11:18
PROVIDERS: Anesthesiology; PCP Nurse Practitioner Family; Referring Provider Student in an Organized Health Care Education/Training Program; Visit Provider Student in an Organized Health Care Education/Training Program
PROC: (CPT 27695; principal; 2024-02-09 12:45)
DX: S93.491A Sprain of other ligament of right ankle, initial encounter (principal); G20.A1 Parkinson's disease without dyskinesia, without mention of fluctuations; Q66.71 Congenital pes cavus, right foot; Q66.11 Congenital talipes calcaneovarus, right foot; X50.1XXA Overexertion from prolonged static or awkward postures, initial encounter; Y92.828 Other wilderness area as the place of occurrence of the external cause; K21.9 Gastro-esophageal reflux disease without esophagitis; F17.220 Nicotine dependence, chewing tobacco, uncomplicated; Z79.899 Other long term (current) drug therapy
CPT/HCPCS: 27695; 28300; 01470; 64445; 36415; 71046; 73630; 73650; 76000; 80053; 85014; 85018; 85025; 93005; C1713; C1776; J7120; J2405